=== PATIENT | male | born 1945 | race Two or more races ===

== ENCOUNTER 2018-08-22 17:31 | Inpatient (IN) | payer MEDICARE ==
[~2018-08-22] VITALS: Ht 182.9 cm; Wt 86.6 kg
--- NOTE | 2018-08-22 17:34 | NUR ---
PT BIB88 FROM SNF C/O SOB SINCE THIS AFTERNOON, FEBRILE 100.2, PT IS AAOX4, NOTED SOB, HOOKED TO MONITOR AND O2 VIA NC AT 2LP, KEPT RESTED AND COMFORTABLE, WILL CONTINUE TO MONITOR.
--- NOTE | 2018-08-22 17:35 | NUR ---
SEEN AND EXAMINED BY DR. ELMORE.
--- NOTE | 2018-08-22 17:40 | NUR ---
LABS DRAWNED AND SENT TO LAB.
[2018-08-22] MEDS ORDERED: ALBUTEROL FS 2.5 MG/3 ML VIAL.NEB ONE (17:43)
[2018-08-22] MEDS ORDERED: IPRATROPIUM NEB FS 0.5 MG/2.5 ML AMPUL.NEB ONE (17:44)
--- NOTE | 2018-08-22 17:45 | NUR ---
RT AT BEDSIDE FOR BREATHING TREATMENT.
--- NOTE | 2018-08-22 17:50 | NUR ---
PICC LINE NURSE AT BEDSIDE.
[2018-08-22 17:56] LABS: BASOPHILS # (AUTO) 0.1 /CMM (0.0-0.2); BASOPHILS % (AUTO) 0.5 % (0.0-2.0); EOSINOPHILS % (AUTO) 0.2 % (0.0-6.0); HEMATOCRIT 27 % (39-51); HEMOGLOBIN 8.3 g/dL (13.5-17.5); LYMPHOCYTES # (AUTO) 0.8 /CMM (0.8-4.8); LYMPHOCYTES % (AUTO) 7.7 % (20.0-44.0); MEAN CORPUSCULAR HGB CONC 31 g/dl (31.0-36.0); MEAN CORPUSCULAR VOLUME 75 fL (80-96); MONOCYTES # (AUTO) 0.8 /CMM (0.1-1.30); MONOCYTES % (AUTO) 7.8 % (2.0-12.0); NEUTROPHILS # (AUTO) 8.7 /CMM (1.8-8.9); NEUTROPHILS % (AUTO) 83.8 % (43.0-81.0); PLATELET COUNT (AUTO) 419 /CMM (150-450); RED BLOOD CELL COUNT(AUTO) 3.64 MIL/uL (4.5-6.0); WHITE BLOOD COUNT (AUTO) 10.3 K/uL (4.3-11.0)
[2018-08-22] MEDS ORDERED: ALBUTEROL FS 2.5 MG/3 ML VIAL.NEB NEB ONE (18:00)
[2018-08-22] MEDS ORDERED: IPRATROPIUM NEB FS 0.5 MG/2.5 ML AMPUL.NEB NEB ONE (18:00)
--- NOTE | 2018-08-22 18:00 | NUR ---
CIVIL CELEBRANT AT BEDSIDE FOR XRAY.
[2018-08-22 18:15] LABS: CALCIUM, SERUM 7.7 mg/dL (8.5-10.1); CARBON DIOXIDE 28 mmol/L (21-32); CHLORIDE 101 mmol/L (98-107); CREATININE 0.6 mg/dL (0.6-1.3); GLUCOSE 127 mg/dL (74-106); POTASSIUM 4.5 mmol/L (3.5-5.1); SODIUM SERUM 135 mmol/L (136-145); UREA NITROGEN, BLOOD 22 mg/dL (7-18)
[2018-08-22 18:20] LABS: ALANINE AMINOTRANSFERASE 61 U/L (12-78); ALKALINE PHOSPHATASE 153 U/L (46-116); ASPARTATE AMINOTRANSFERASE 40 U/L (15-37); BILIRUBIN,DIRECT 0.1 mg/dL (0.0-0.2); BILIRUBIN,TOTAL 0.2 mg/dL (0.2-1.0); TOTAL PROTEIN, SERUM 6.7 g/dL (6.4-8.2)
[2018-08-22] MEDS ORDERED: ACETAMINOPHEN 325 MG TABLET PO ONE (18:30)
[2018-08-22] MEDS ORDERED: ACETAMINOPHEN 325 MG TABLET ONE (18:37)
--- NOTE | 2018-08-22 18:44 | NUR ---
URINAL GIVEN BUT UNABLE TO GIVE URINE SPECIMEN. REFUSING RASMUSSEN CATH.
[2018-08-22] MEDS ORDERED: CEFEPIME 1 GM in IV D5W 50 ML IV ONE (19:00)
[2018-08-22] MEDS ORDERED: VANCOMYCIN 1 GM in IV D5W 250 ML IV ONE (19:00)
[2018-08-22] MEDS ORDERED: methylPREDNISolone SOD SUCC 125 MG/2ML VIAL IV ONE (19:00)
[2018-08-22 19:03] LABS: APPEARANCE,URINE Clear (CLEAR); BILIRUBIN,URINE Negative (NEGATIVE); BLOOD, URINE Negative Ery/uL (NEGATIVE); COLOR,URINE Yellow (YELLOW); KETONES,URINE Negative (NEGATIVE); LEUKOCYTE ESTERASE ,URINE Negative (NEGATIVE); NITRITE, URINE Negative (NEGATIVE); PROTEIN,URINE 30 mg/dl (NEGATIVE); UGLUCOSE Negative (NEGATIVE); UROBILINOGEN,URINE 0.2 EU/dL (0.2)
[2018-08-22 19:05] LABS: BACTERIA,URINE Few /HPF (None Seen); SQUAMOUS EPITHELIAL CELL,UR Few /HPF (None Seen)
[2018-08-22] MEDS ORDERED: methylPREDNISolone SOD SUCC 125 MG/2ML VIAL ONE (19:20)
--- NOTE | 2018-08-22 19:30 | NUR ---
REPORT GIVEN TO SACHIN FUNEZ FOR MICHELLE.
--- NOTE | 2018-08-22 19:40 | NUR ---
EPIC PAGED FOR POSSIBLE ADMISSIONS
[2018-08-22 19:47] LABS: ABG BASE EXCESS -3.7 mmol/L; ABG OXYGEN SATURATION 91.9 % (92.0-98.5); ABG PCO2 30.6 mmHg (35.0-45.0); ABG PH 7.431 (7.350-7.450); ABG PO2 68.2 mmHg (75.0-100.0); AaDO2 124.2 mmHg; COHb 0.5 % (0.5-1.5); MetHb 0.7 % (0.0-1.5); O2Hb 90.8 % (94.0-97.0); SITE, ABG Right Radial; VENT MODE, BG N/C
--- NOTE | 2018-08-22 20:08 | NUR ---
ADMIT TO ROOM 319 TELE DX [facility] ACCEPTING [facility]
--- NOTE | 2018-08-22 20:22 | NUR ---
REPORT GIVEN TO YAW MCGILL FOR MICHELLE.
[2018-08-22] MEDS ORDERED: IV NS 0.9% 250 ML IV ONE (20:29)
[2018-08-22] MEDS ORDERED: CT SWABBABLE VALVE TRANS SET 1 EA INFUS.SET MC ONE (20:29)
[2018-08-22] MEDS ORDERED: IOHEXOL-350 100 ML VIAL IV ONE (20:29)
--- NOTE | 2018-08-22 20:31 | NUR ---
PT TO CT, PER MD ZHOU, PT WILL BE GOING TO [facility]
--- NOTE | 2018-08-22 20:31 | NUR ---
PT TAKEN TO RADIOLOGY FOR CTA
--- NOTE | 2018-08-22 20:46 | NUR ---
report given to angélicaalejandra crooks for izzy.
[2018-08-22] MEDS ORDERED: IV NS 0.9% 1,000 ML IV PRN (21:00)
[2018-08-22] MEDS ORDERED: IV NS 0.9% 500 ML BAG IV ONE (21:00)
[2018-08-22] MEDS ORDERED: ONDANSETRON HCL/PF 4 MG/2 ML VIAL IVP PRN (21:00)
[2018-08-22] MEDS: MEROPENEM 1 G in IV NS 0.9% 100 ML IV SCH (21:00)
[2018-08-22 21:10] VITALS: BP 105/47
--- NOTE | 2018-08-22 21:30 | NUR ---
RN/ADMISSION [facility] NOTES: RECEIVED PT. VIA GURNEY FROM ER W/RN AND TECH AND . ALERT AND AWAKE. VERBALLY RESPONSIVE. ABLE TO MAKE NEEDS KNOWN. DENIES ANY C/O CHEST PAIN OR SOB AT PRESENT. ON TELE MONITOR W/ ST AT 118. BODY ASSESSMENT DONE W/ PICTURES IN CHART. PER PT. HE HAD # 3 HIATAL HERNIA 03/2018. FIRST HIATAL HERNIA SURGERY WAS IN 1998 AND SECOND ONE WAS IN 2008. CURRENTLY HE LOWER PART OF THE ABDOMEN W/ REDNESS AND OOZING W/ YELLOWISH COLOR DRAINAGE NOTED. HAS A PICC LINE TLC ON ERIC W/ DRESSING C/D/I W/ NO S/S OF INFECTION/INFILTRATION NOTED. PT. WEARS TOP DENTURES AND BOTTOM PARTIAL. INCONTINENT OF B/B. CALL LIGHT W/ REACH.
[2018-08-22] MEDS ORDERED: MEROPENEM 1 G VIAL IV ONE (22:38)
[2018-08-22] MEDS ORDERED: IV D5/ 0.9% NACL 1,000 ML IV PRN (23:30)
--- NOTE | 2018-08-22 23:30 | NUR ---
RN/[facility] NOTES: CALLED DR. YANG REGARDING PT. WAS ON D5 AND ON TPN PRIOR TO COMING TO ER. PER MD TO CHANGE FLUIDS TO D5NS AND START ON HHN TX. NOTED AND CARRIED OUT.
[2018-08-22] MEDS: ENOXAPARIN SODIUM 40 MG/0.4 ML DISP.SYRIN SQ SCH (23:56)
[2018-08-22] MEDS: PANTOPRAZOLE 40 MG VIAL IV SCH (23:56)
[2018-08-23] VITALS: BP 102/69
[2018-08-23] MEDS: ALBUTEROL FS 2.5 MG/3 ML VIAL.NEB NEB SCH ×7 (00:17→23:30)
[2018-08-23] MEDS: IPRATROPIUM NEB FS 0.5 MG/2.5 ML AMPUL.NEB NEB SCH ×7 (00:17→23:31)
[2018-08-23 04:00] VITALS: BP 104/52
[2018-08-23] MEDS ORDERED: MEROPENEM 1 G VIAL IV ONE (05:21)
[2018-08-23] MEDS: MEROPENEM 1 G in IV NS 0.9% 100 ML IV SCH ×3 (05:25→17:41)
[2018-08-23 06:34] LABS: BASOPHILS % (AUTO) 0.1 % (0.0-2.0); HEMATOCRIT 26 % (39-51); LYMPHOCYTES # (AUTO) 0.8 /CMM (0.8-4.8); MEAN CORPUSCULAR HGB CONC 31 g/dl (31.0-36.0); MEAN CORPUSCULAR VOLUME 75 fL (80-96); MONOCYTES # (AUTO) 0.2 /CMM (0.1-1.30); MONOCYTES % (AUTO) 1.7 % (2.0-12.0); NEUTROPHILS # (AUTO) 7.8 /CMM (1.8-8.9); NEUTROPHILS % (AUTO) 89.2 % (43.0-81.0); PLATELET COUNT (AUTO) 401 /CMM (150-450); RED BLOOD CELL COUNT(AUTO) 3.46 MIL/uL (4.5-6.0); WHITE BLOOD COUNT (AUTO) 8.8 K/uL (4.3-11.0)
[2018-08-23 06:49] LABS: ALANINE AMINOTRANSFERASE 53 U/L (12-78); ALBUMIN 1.8 g/dL (3.4-5.0); ALKALINE PHOSPHATASE 138 U/L (46-116); ASPARTATE AMINOTRANSFERASE 29 U/L (15-37); BILIRUBIN,TOTAL 0.2 mg/dL (0.2-1.0); CALCIUM, SERUM 8.3 mg/dL (8.5-10.1); CARBON DIOXIDE 27 mmol/L (21-32); CHLORIDE 105 mmol/L (98-107); CREATININE 0.7 mg/dL (0.6-1.3); GLUCOSE 179 mg/dL (74-106); POTASSIUM 4.3 mmol/L (3.5-5.1); SODIUM SERUM 141 mmol/L (136-145); TOTAL PROTEIN, SERUM 6.4 g/dL (6.4-8.2); UREA NITROGEN, BLOOD 20 mg/dL (7-18)
--- NOTE | 2018-08-23 07:32 | NUR ---
RN/[facility] NOTES: REPORT GIVEN TO NEXT SHIFT NURSE FOR MICHELLE.
--- NOTE | 2018-08-23 07:45 | NUR ---
RN NOTE: RECEIVED PATIENT IN BED, AWAKE, ALERT AND VERBALLY RESPONSIVE. RESPIRATION EVEN AND UNLABORED SATURATING 95%. DENIED ANY PAIN. (R) UA PICC LINE WITH 3 LUMENS NOTED IN PLACED WITH D5NS @80ML/HR. ON KEYSEATER OPERATOR ST= 118. BED ON LOWEST POSITION AND LOCKED AT ALL TIMES. HOB ELEVATED. CALL LIGHT WITHIN REACH. NEEDS ANTICIPATED.
[2018-08-23 08:00] VITALS: BP 126/65
[2018-08-23] MEDS ORDERED: VANCOMYCIN 1.25 GM in IV D5W 500 ML IV SCH (09:00)
[2018-08-23] MEDS: PANTOPRAZOLE 40 MG VIAL IV SCH (09:18)
[2018-08-23] MEDS ORDERED: Z GUARD REMEDY 4 OZ OINT TP PRN (11:00)
[2018-08-23] MEDS ORDERED: TPN/PPN PER PHARMACY XX PRN (11:30)
[2018-08-23 12:00] VITALS: BP 116/65
[2018-08-23] MEDS ORDERED: BLOO-668 IN (12:15)
[2018-08-23] MEDS ORDERED: ENOX40DI SUBCUT (12:15)
[2018-08-23] MEDS ORDERED: DEXT50DI5 IV (12:15)
[2018-08-23] MEDS ORDERED: BUDE10.2 IH (12:15)
[2018-08-23] MEDS ORDERED: PANT40VI IV (12:15)
[2018-08-23] MEDS ORDERED: INSU100V28 SQ (12:15)
[2018-08-23] MEDS ORDERED: ACET650S26 PO (12:15)
[2018-08-23] MEDS ORDERED: IPRA0.2S9 IH (12:15)
[2018-08-23] MEDS ORDERED: IBUP-1953 PO (12:15)
[2018-08-23] MEDS ORDERED: LEVA1.257 IH (12:15)
[2018-08-23] MEDS ORDERED: ESCI20TA PO (12:15)
[2018-08-23] MEDS ORDERED: ONDA4TAB11 PO (12:15)
[2018-08-23] MEDS ORDERED: ONDA4VIA52 IV (12:15)
[2018-08-23] MEDS ORDERED: LACT1CAP40 PO (12:15)
[2018-08-23] MEDS ORDERED: PROCHLORPERAZINE 10 MG IV (12:15)
[2018-08-23] MEDS ORDERED: DOCU-141 PO (12:15)
[2018-08-23] MEDS ORDERED: DILT30TA2 PO (12:15)
--- NOTE | 2018-08-23 13:06 | NUR ---
RN NOTE: RECEIVED A CRITICAL LAB RESULT FOR LACTIC ACID REFLEX 2.8 FROM LAB. CALLED AND PAGED DR ARIANNA BURTON FOR THE CRITICAL LAB RESULT. AWAITING FOR RESPONSE.
--- NOTE | 2018-08-23 13:09 | NUR ---
RN NOTE: RECEIVED AN ORDER FROM DR. ARIANNA BURTON TO GIVE A NS 500 ML BOLUS X 1 FOR THE LACTIC ACID REFLEX 2.8 ORDER, NOTED AND CARRIED OUT. PATIENT MADE AWARE.
[2018-08-23] MEDS: methylPREDNISolone SOD SUCC 40 MG/ML VIAL IV SCH ×2 (13:14→16:26)
[2018-08-23] MEDS: METRONIDAZOLE 500MG/ NS 100ML 500 MG in PREMIX 1 EA IV SCH ×2 (13:15→21:17)
[2018-08-23] MEDS ORDERED: IV NS 0.9% 500 ML IV ONE (13:30)
[2018-08-23 13:53] LABS: MAGNESIUM 1.9 mg/dL (1.8-2.4); PHOSPHORUS 2.9 mg/dL (2.5-4.9)
[2018-08-23] MEDS ORDERED: FEE PK DOSING 1 MIN EA MC ONE (13:56)
[2018-08-23] MEDS ORDERED: FEE TPN 1 MIN EA MC ONE (13:56)
[2018-08-23] MEDS ORDERED: DEXTROSE 50%-WATER 50 ML DISP.SYRIN IV PRN (14:30)
[2018-08-23] MEDS: FAT EMULSION 20% 500 ML in PREMIX 1 EA IV SCH (15:53)
[2018-08-23 16:00] VITALS: BP 111/53
[2018-08-23] MEDS ORDERED: TPN BAG #1 IV SCH ×9 (16:00)
[2018-08-23] MEDS ORDERED: TPN BAG #2 IV PRN ×7 (16:00)
[2018-08-23] MEDS: BLOOD SUGAR DIAGNOSTIC 1 EACH STRIP IN SCH (17:53)
[2018-08-23] MEDS: INSULIN REGULAR, HUMAN 100 UNIT/ML 3 ML VIAL SQ PRN (17:54)
--- NOTE | 2018-08-23 18:51 | NUR ---
RN NOTE: INFORMED DR. BURTON REGARDING THE PATIENT'S REQUEST TO HAVE LIQUID DIET, BUT PER DR. BURTON OK WITH LITTLE SIPS OF WATER OR ICE CHIPS. PATIENT AND , DANIELE WERE INFORMED. ORDER, NOTED AND CARRIED OUT.
--- NOTE | 2018-08-23 19:02 | NUR ---
RN NOTE: PATIENT ON STABLE CONDITION. CURRENTLY RECEIVING THE TPN AND LIPIDS PER MD ORDER. TOLERATING IT WELL. DANIELE, PRESENT AT THE BEDSIDE. BEDSIDE REPORT GIVEN TO PM SHIFT NURSE FOR CONTINUITY OF CARE.
[2018-08-23 20:00] VITALS: BP 115/70
--- NOTE | 2018-08-23 20:00 | NUR ---
[facility] RN NOTE: RECEIVED BEDSIDE REPORT FROM AM RN. PATIENT ON BED WITH FAMILY MEMBER AT THE BEDSIDE, ON STABLE CONDITION. CURRENTLY RECEIVING THE TPN AND LIPIDS PER MD ORDER. TOLERATING IT WELL. PATIENT DENIES OF SOB, ANY PAIN AND DISCOMFORT AT THIS TIME. PICC LINE AT RIGHT UPPER ARM IS PATIENT AND INTACT. ALL SAFETY MEASURES ARE IMPLEMENTED, BED IN LOW, LOCKED POSITION, CALL LIGHT IN REACH. WILL CONTINUE TO MONITOR PATIENT CLOSELY.
[2018-08-23] MEDS: ENOXAPARIN SODIUM 40 MG/0.4 ML DISP.SYRIN SQ SCH (21:28)
[2018-08-23] MEDS: VANCOMYCIN 1.5 GM in IV D5W 500 ML IV SCH (22:17)
[2018-08-24] VITALS: BP 107/98
[2018-08-24] MEDS: BLOOD SUGAR DIAGNOSTIC 1 EACH STRIP IN SCH ×4 (00:43→18:11)
[2018-08-24] MEDS: INSULIN REGULAR, HUMAN 100 UNIT/ML 3 ML VIAL SQ PRN ×4 (00:48→18:11)
[2018-08-24] MEDS: MEROPENEM 1 G in IV NS 0.9% 100 ML IV SCH ×3 (02:18→18:11)
[2018-08-24] MEDS: IPRATROPIUM NEB FS 0.5 MG/2.5 ML AMPUL.NEB NEB SCH ×6 (03:46→23:02)
[2018-08-24] MEDS: ALBUTEROL FS 2.5 MG/3 ML VIAL.NEB NEB SCH ×6 (03:46→23:02)
[2018-08-24 04:00] VITALS: BP 118/81
[2018-08-24] MEDS: METRONIDAZOLE 500MG/ NS 100ML 500 MG in PREMIX 1 EA IV SCH ×3 (05:51→21:56)
--- NOTE | 2018-08-24 07:30 | NUR ---
MASCARA MOLDER OPENING NOTE: RECEIVED BEDSIDE REPORT FROM NOC RN . PATIENT IN BED ASLEEP ABLE TO AROUSE WITH TOUCH AND VOICE A/O X4 PLEASANT. CURRENTLY RECEIVING THE TPN AND LIPIDS PER MD ORDER VIA [facility] PICC. TOLERATING IT WELL. PATIENT DENIES OF SOB, ANY PAIN AND DISCOMFORT AT THIS TIME ALL SAFETY MEASURES ARE IMPLEMENTED, BED IN LOW, LOCKED POSITION, CALL LIGHT IN REACH. WILL CONTINUE TO MONITOR PATIENT CLOSELY.
[2018-08-24 08:00] VITALS: BP 112/70
[2018-08-24 08:48] LABS: CARBON DIOXIDE 27 mmol/L (21-32); CHLORIDE 105 mmol/L (98-107); CREATININE 0.6 mg/dL (0.6-1.3); GLUCOSE 165 mg/dL (74-106); MAGNESIUM 1.8 mg/dL (1.8-2.4); PHOSPHORUS 2.2 mg/dL (2.5-4.9); POTASSIUM 3.9 mmol/L (3.5-5.1); SODIUM SERUM 138 mmol/L (136-145); UREA NITROGEN, BLOOD 22 mg/dL (7-18)
[2018-08-24] MEDS: PANTOPRAZOLE 40 MG VIAL IV SCH (09:14)
[2018-08-24] MEDS: methylPREDNISolone SOD SUCC 40 MG/ML VIAL IV SCH ×3 (09:14→18:14)
--- NOTE | 2018-08-24 09:32 | NUR ---
GEOLOGICAL SPECIALIST NOTES CHANGED ABDOMINAL DRESSING LARGE AMOUNTS OF GREEN YELLOW COLORED DRAINAGE WILL F/U WITH WOUND AND MD
[2018-08-24] MEDS: VANCOMYCIN 1.5 GM in IV D5W 500 ML IV SCH ×2 (10:03→22:33)
[2018-08-24 12:00] VITALS: BP 132/71
[2018-08-24] MEDS ORDERED: TPN BAG #3 IV SCH ×9 (13:00)
[2018-08-24] MEDS ORDERED: TPN BAG #4 IV SCH ×7 (13:00)
[2018-08-24 16:00] VITALS: BP 135/78
[2018-08-24] MEDS: FAT EMULSION 20% 500 ML in PREMIX 1 EA IV SCH (16:15)
--- NOTE | 2018-08-24 19:56 | NUR ---
GLOBAL SUPPLY CHAIN DIRECTOR CLOSING NOTE: REPORT GIVEN TO NOC RN PATIENT AWAKE IN BED AT BEDSIDE A/O X4 PLEASANT NO SIGNS OR SYMPTOMS OF RESPIRATORY DISTRESS OR ACUTE PAIN NOTED CURRENTLY RECEIVING THE TPN @ 75ML/HR AND LIPIDS @20ML/HR PER MD ORDER VIA EMMANUEL PICC. TOLERATING IT WELL. FULL LIQUID DIET FOR DINNER NO NAUSEA OR VOMITING DIARRHEA PATIENT DENIES OF SOB, ANY PAIN AND DISCOMFORT AT THIS TIME ALL SAFETY MEASURES ARE IMPLEMENTED, BED IN LOW, LOCKED POSITION, CALL LIGHT IN REACH. WILL ENDORSE TO NOC.
[2018-08-24 20:00] VITALS: BP 114/65
[2018-08-24] MEDS: ENOXAPARIN SODIUM 40 MG/0.4 ML DISP.SYRIN SQ SCH (21:57)
[2018-08-25] VITALS: BP 131/76
[2018-08-25] MEDS: BLOOD SUGAR DIAGNOSTIC 1 EACH STRIP IN SCH ×4 (00:18→18:09)
[2018-08-25] MEDS: INSULIN REGULAR, HUMAN 100 UNIT/ML 3 ML VIAL SQ PRN ×4 (00:20→18:12)
[2018-08-25] MEDS: MEROPENEM 1 G in IV NS 0.9% 100 ML IV SCH ×3 (02:21→18:08)
[2018-08-25] MEDS: ALBUTEROL FS 2.5 MG/3 ML VIAL.NEB NEB SCH ×6 (03:59→23:19)
[2018-08-25 04:00] VITALS: BP 138/85
[2018-08-25] MEDS: IPRATROPIUM NEB FS 0.5 MG/2.5 ML AMPUL.NEB NEB SCH ×6 (04:00→23:19)
[2018-08-25] MEDS: METRONIDAZOLE 500MG/ NS 100ML 500 MG in PREMIX 1 EA IV SCH ×2 (05:16→13:52)
[2018-08-25 08:00] VITALS: BP 132/73
--- NOTE | 2018-08-25 08:14 | NUR ---
RN NOTE: PATIENT REMAINS ALERT AWAKE ORIENTED X 3. ON 2LPM O2 VIA NC, NO BREATHING DISTRESS NOTED. DENIES PAIN & DISCOMFORT. PICC LINE INTACT, RUNNING TPN, LIPIDS IV ORDERED. ABLE TO FLUSH WITHOUT DIFFICULTY. SAFETY MEASURES OBSERVED. ENCOURAGE TO USE CALL LIGHT FOR ASSISTANCE. CONTINUE WITH PLAN OF CARE.
[2018-08-25 08:35] LABS: CARBON DIOXIDE 28 mmol/L (21-32); CHLORIDE 104 mmol/L (98-107); CREATININE 0.6 mg/dL (0.6-1.3); GLUCOSE 135 mg/dL (74-106); MAGNESIUM 1.8 mg/dL (1.8-2.4); PHOSPHORUS 2.4 mg/dL (2.5-4.9); POTASSIUM 4.2 mmol/L (3.5-5.1); SODIUM SERUM 138 mmol/L (136-145); UREA NITROGEN, BLOOD 21 mg/dL (7-18)
[2018-08-25] MEDS: PANTOPRAZOLE 40 MG VIAL IV SCH (09:01)
[2018-08-25] MEDS: methylPREDNISolone SOD SUCC 40 MG/ML VIAL IV SCH ×3 (09:01→18:08)
[2018-08-25] MEDS: VANCOMYCIN 1.5 GM in IV D5W 500 ML IV SCH (09:07)
[2018-08-25 12:00] VITALS: BP 141/86
[2018-08-25] MEDS ORDERED: IV NS 0.9% 500 ML IV ONE (12:00)
[2018-08-25] MEDS ORDERED: TPN BAG #5 IV PRN ×9 (14:00)
[2018-08-25 16:00] VITALS: BP 146/71
[2018-08-25] MEDS: LINEZOLID RTU BAG 600 MG in PREMIX 1 EA IV SCH (16:14)
[2018-08-25] MEDS: FAT EMULSION 20% 500 ML in PREMIX 1 EA IV SCH (16:14)
[2018-08-25] MEDS ORDERED: LIDOCAINE 1%-EPI 1:100,000 20 ML VIAL ONE (18:55)
[2018-08-25] MEDS ORDERED: TDAP [DIPH/PERTUSSIS/TET] 0.5 ML VIAL IM ONE (18:55)
[2018-08-25] MEDS ORDERED: CEPHALEXIN MONOHYDRATE 500 MG CAPSULE PO ONE (18:55)
[2018-08-25] MEDS ORDERED: ACETAMINOPHEN ES 500 MG TABLET ONE (18:55)
[2018-08-25 20:00] VITALS: BP 127/72
[2018-08-25] MEDS: ENOXAPARIN SODIUM 40 MG/0.4 ML DISP.SYRIN SQ SCH (21:13)
[2018-08-26] MEDS: BLOOD SUGAR DIAGNOSTIC 1 EACH STRIP IN SCH ×4 (00:22→17:37)
[2018-08-26] MEDS: LINEZOLID RTU BAG 600 MG in PREMIX 1 EA IV SCH ×2 (00:22→12:28)
[2018-08-26] MEDS: VANCOMYCIN HCL 125 MG/2.5 ML ORAL.SUSP PO SCH ×4 (00:22→17:29)
[2018-08-26] MEDS: INSULIN REGULAR, HUMAN 100 UNIT/ML 3 ML VIAL SQ PRN ×4 (00:25→17:36)
[2018-08-26] MEDS: MEROPENEM 1 G in IV NS 0.9% 100 ML IV SCH ×3 (02:07→17:29)
[2018-08-26] MEDS: ALBUTEROL FS 2.5 MG/3 ML VIAL.NEB NEB SCH ×6 (03:31→22:49)
[2018-08-26] MEDS: IPRATROPIUM NEB FS 0.5 MG/2.5 ML AMPUL.NEB NEB SCH ×6 (03:31→22:49)
--- NOTE | 2018-08-26 06:26 | NUR ---
MS RN CLOSING NOTES Patient asleep at this time, on NC @ 2LPM, saturating well, no SOB/respiratory distress noted. Able to ambulate with walker to bathroom, steady gait. BM x2, moderate, regular, formed. All due meds given as ordered, no ASE noted. Still on TPN, #6 as same rate as ordered, infusing well. No new complaints made. All needs attended. Kept clean, dry and comfortable. Call light within easy reach. Endorsed to the next shift.
--- NOTE | 2018-08-26 07:30 | NUR ---
MS RN OPENING NOTE RECEIVED PATIENT IN BED. SLEEPING, EASILY AROUSED WITH VERBAL STIMULI, ORIENTED X3. ON 2L O2 VIA NC, TOLERATING WELL. IN NO APPARENT DISTRESS OR DISCOMFORT AT THIS TIME/ RESPIRATION EVEN AND UNLABORED DENIES PAIN AND SOB AT THIS TIME. PATIENT IS ABLE TO COMMUNICATE NEEDS. RIGHT UPPER ARM PICC LINE WITH TPN AND LIPIDS RUNNING ORDERED. PATENT AND INTACT. PATIENT KEPT CLEAN AND COMFORTABLE. ALL NEEDS ATTENDED, SAFETY MEASURES IN PLACE, BED IN LOW LOCKED POSITION, SIDE RAILS UP X2, CALL LIGHT WITHIN EASY REACH. WILL CONTINUE TO MONITOR.
[2018-08-26 07:58] LABS: CALCIUM, SERUM 7.8 mg/dL (8.5-10.1); CARBON DIOXIDE 27 mmol/L (21-32); CHLORIDE 104 mmol/L (98-107); CREATININE 0.6 mg/dL (0.6-1.3); GLUCOSE 162 mg/dL (74-106); MAGNESIUM 1.7 mg/dL (1.8-2.4); PHOSPHORUS 2.9 mg/dL (2.5-4.9); POTASSIUM 4.1 mmol/L (3.5-5.1); SODIUM SERUM 139 mmol/L (136-145); UREA NITROGEN, BLOOD 18 mg/dL (7-18)
[2018-08-26 08:00] VITALS: BP 130/75
[2018-08-26] MEDS: methylPREDNISolone SOD SUCC 40 MG/ML VIAL IV SCH ×3 (08:23→17:29)
[2018-08-26] MEDS: PANTOPRAZOLE 40 MG VIAL IV SCH (08:23)
[2018-08-26 09:00] VITALS: BP 130/75
[2018-08-26 10:00] VITALS: BP 130/75
[2018-08-26] MEDS ORDERED: ESCITALOPRAM OXALATE (10 MG) 10 MG TABLET PO SCH (14:00)
[2018-08-26] MEDS: DILTIAZEM HCL 30 MG TABLET PO SCH ×2 (15:50→17:29)
[2018-08-26] MEDS: FAT EMULSION 20% 500 ML in PREMIX 1 EA IV SCH (15:51)
[2018-08-26 16:00] VITALS: BP 140/72
[2018-08-26] MEDS ORDERED: TPN BAG #6 IV PRN ×7 (16:00)
[2018-08-26] MEDS ORDERED: TPN BAG #7 IV SCH ×9 (16:00)
--- NOTE | 2018-08-26 18:14 | NUR ---
MS RN CLOSING NOTE PATIENT IN BED. ALERT ORIENTED X3. ON 2L O2 VIA NC, TOLERATING WELL. IN NO APPARENT DISTRESS OR DISCOMFORT AT THIS TIME. RESPIRATION EVEN AND UNLABORED. DENIES PAIN AND SOB AT THIS TIME. PATIENT IS ABLE TO COMMUNICATE NEEDS. RIGHT UPPER ARM PICC LINE WITH TPN AND LIPIDS RUNNING WITH ORDERED SETTINGS. PATENT AND INTACT. PATIENT KEPT CLEAN AND COMFORTABLE. ALL NEEDS ATTENDED, ORDERS RENDERED. SAFETY MEASURES IN PLACE, BED IN LOW LOCKED POSITION, SIDE RAILS UP X2, CALL LIGHT WITHIN EASY REACH. WILL ENDORSE TO PM NURSE FOR MICHELLE.
[2018-08-26 20:00] VITALS: BP 104/57
--- NOTE | 2018-08-26 20:00 | NUR ---
MS/RN OPENING NOTES RECEIVED PATIENT IN BED, AWAKE, ALERT X3, ABLE TO VERBALIZE NEEDS, DENIES PAIN, RESPIRATIONS EVEN AND UNLABORED. REQUIRE DRESSING AND MONITORING OF ABDOMINAL WOUND. PICC LINE CHECK FOR PATENCY, INSTRUCT TO HAVE ARM ELEVATED FOR PROPER CIRCULATION. RECEIVED ENDORSEMENT FROM AM RN FOR MICHELLE. WILL MONITOR.
[2018-08-26] MEDS: ENOXAPARIN SODIUM 40 MG/0.4 ML DISP.SYRIN SQ SCH (21:01)
[2018-08-27] MEDS: LINEZOLID RTU BAG 600 MG in PREMIX 1 EA IV SCH ×3 (00:20→23:09)
[2018-08-27] MEDS: BLOOD SUGAR DIAGNOSTIC 1 EACH STRIP IN SCH ×4 (00:21→17:47)
[2018-08-27] MEDS: VANCOMYCIN HCL 125 MG/2.5 ML ORAL.SUSP PO SCH ×5 (00:21→23:09)
[2018-08-27] MEDS: INSULIN REGULAR, HUMAN 100 UNIT/ML 3 ML VIAL SQ PRN ×4 (00:39→18:06)
[2018-08-27] MEDS: IPRATROPIUM NEB FS 0.5 MG/2.5 ML AMPUL.NEB NEB SCH ×6 (02:51→23:05)
[2018-08-27] MEDS: ALBUTEROL FS 2.5 MG/3 ML VIAL.NEB NEB SCH ×6 (02:51→23:05)
[2018-08-27] MEDS: MEROPENEM 1 G in IV NS 0.9% 100 ML IV SCH ×3 (03:14→17:31)
[2018-08-27 04:00] VITALS: BP 119/66
[2018-08-27 06:30] LABS: CALCIUM, SERUM 7.9 mg/dL (8.5-10.1); CARBON DIOXIDE 30 mmol/L (21-32); CHLORIDE 103 mmol/L (98-107); CREATININE 0.6 mg/dL (0.6-1.3); GLUCOSE 152 mg/dL (74-106); PHOSPHORUS 3.4 mg/dL (2.5-4.9); POTASSIUM 4.1 mmol/L (3.5-5.1); SODIUM SERUM 137 mmol/L (136-145); UREA NITROGEN, BLOOD 17 mg/dL (7-18)
--- NOTE | 2018-08-27 06:50 | NUR ---
110-1MS/RN NOTES PATIENT ABLE TO SLEEP DURING THE NIGHT, REPISRATIONS EVEN AND UNLABORED. PARTICIPATIVE TO CARE. KEPT SKIN INTATC AND DRY, CALL LIGHTS WITHIN REACH, IV ANTIBIOTIC ADMINIDTERED. WILL MONITOR.ABD ENDORSE TO AM RN FOR MICHELLE.
--- NOTE | 2018-08-27 07:53 | NUR ---
RN MS OPENING NOTE: RECEIVED BEDSIDE REPORT FROM NOC RN . PATIENT IN BED ASLEEP ABLE TO AROUSE WITH TOUCH AND VOICE A/O X4 PLEASANT. CURRENTLY RECEIVING THE TPN AND LIPIDS PER MD ORDER VIA [facility] PICC. TOLERATING IT WELL. PATIENT DENIES OF SOB, ANY PAIN AND DISCOMFORT AT THIS TIME ALL SAFETY MEASURES ARE IMPLEMENTED, BED IN LOW, LOCKED POSITION, CALL LIGHT IN REACH. WILL CONTINUE TO MONITOR PATIENT CLOSELY.
[2018-08-27 08:00] VITALS: BP 132/73
[2018-08-27 08:14] VITALS: BP 132/73
[2018-08-27] MEDS: PANTOPRAZOLE 40 MG VIAL IV SCH (08:36)
[2018-08-27] MEDS: DILTIAZEM HCL 30 MG TABLET PO SCH ×3 (08:36→17:31)
[2018-08-27] MEDS: methylPREDNISolone SOD SUCC 40 MG/ML VIAL IV SCH ×3 (08:36→17:31)
[2018-08-27 10:00] VITALS: BP 132/73
[2018-08-27] MEDS ORDERED: LINEZOLID 600 MG TABLET PO SCH (11:00)
[2018-08-27] MEDS ORDERED: TPN BAG #8 IV PRN ×7 (12:30)
[2018-08-27] MEDS: FAT EMULSION 20% 500 ML in PREMIX 1 EA IV SCH (15:01)
[2018-08-27 16:00] VITALS: BP 114/72
--- NOTE | 2018-08-27 19:33 | NUR ---
PLUSH FINISHER CLOSING NOTE: REPORT GIVEN TO RUBENS RN A/O X4 PLEASANT NO SIGNS OR SYMPTOMS OF RESPIRATORY DISTRESS OR ACUTE PAIN NOTED CURRENTLY RECEIVING THE TPN @ 75ML/HR AND LIPIDS @20ML/HR PER MD ORDER VIA EMMANUEL PICC. TOLERATING IT WELL. FULL LIQUID DIET FOR DINNER NO NAUSEA OR VOMITING DIARRHEA PATIENT DENIES OF SOB, ANY PAIN AND DISCOMFORT AT THIS TIME ALL SAFETY MEASURES ARE IMPLEMENTED, BED IN LOW, LOCKED POSITION, CALL LIGHT IN REACH. WILL ENDORSE TO RUBENS.
[2018-08-27 20:00] VITALS: BP_SYST 107; BP_SYST 117; BP_DIAS 53; BP_DIAS 67
[2018-08-27] MEDS: ENOXAPARIN SODIUM 40 MG/0.4 ML DISP.SYRIN SQ SCH (21:26)
[2018-08-28 00:07] VITALS: BP 113/69
[2018-08-28] MEDS: BLOOD SUGAR DIAGNOSTIC 1 EACH STRIP IN SCH ×4 (00:32→17:26)
[2018-08-28] MEDS: INSULIN REGULAR, HUMAN 100 UNIT/ML 3 ML VIAL SQ PRN ×4 (00:34→17:27)
[2018-08-28] MEDS: MEROPENEM 1 G in IV NS 0.9% 100 ML IV SCH ×3 (02:30→17:10)
[2018-08-28] MEDS: ALBUTEROL FS 2.5 MG/3 ML VIAL.NEB NEB SCH ×5 (02:57→19:55)
[2018-08-28] MEDS: IPRATROPIUM NEB FS 0.5 MG/2.5 ML AMPUL.NEB NEB SCH ×5 (02:57→19:55)
[2018-08-28 04:00] VITALS: BP 124/69
[2018-08-28 05:00] VITALS: BP 124/69
--- NOTE | 2018-08-28 06:00 | NUR ---
pt no significant changes overnight, continue with tpn, lipids and antibiotics, voiding ,ambulates to bathroom. vss,afebrile, lab drawn thru picc , will continue to momitor. vss,afebrile
[2018-08-28] MEDS: VANCOMYCIN HCL 125 MG/2.5 ML ORAL.SUSP PO SCH ×3 (06:23→17:10)
[2018-08-28 07:05] LABS: CALCIUM, SERUM 7.8 mg/dL (8.5-10.1); CARBON DIOXIDE 29 mmol/L (21-32); CHLORIDE 102 mmol/L (98-107); CREATININE 0.6 mg/dL (0.6-1.3); GLUCOSE 155 mg/dL (74-106); MAGNESIUM 2.1 mg/dL (1.8-2.4); PHOSPHORUS 3.4 mg/dL (2.5-4.9); POTASSIUM 4.2 mmol/L (3.5-5.1); SODIUM SERUM 138 mmol/L (136-145); UREA NITROGEN, BLOOD 20 mg/dL (7-18)
--- NOTE | 2018-08-28 07:10 | NUR ---
MS RN OPENING NOTES RECEIVED PT LYING ON BED.ALERT/ORIENTED X4.ON 2 L O2 VIA NC CONTINUOUSLY,NO SOB AND ACUTE DISTRESS NOTED.3 LUMEN PICC LINE ON EMMANUEL,SITE IS CLEAN,DRY AND INTACT.TPN IS RUNNING.EDEMA ON RIGHT ARM NOTED.SAFETY IS MAINTAINED AT ALL TIMES.CALL LIGHT IS WITHIN REACH,BED IS IN LOW POSITION AND LOCKED.WILL CONTINUE TO MONITOR THE PT CLOSELY.
[2018-08-28 08:00] VITALS: BP 128/76
[2018-08-28] MEDS: PANTOPRAZOLE 40 MG VIAL IV SCH (08:23)
[2018-08-28] MEDS: methylPREDNISolone SOD SUCC 40 MG/ML VIAL IV SCH ×3 (08:23→16:05)
[2018-08-28] MEDS: DILTIAZEM HCL 30 MG TABLET PO SCH ×3 (08:23→16:06)
[2018-08-28] MEDS: LINEZOLID RTU BAG 600 MG in PREMIX 1 EA IV SCH (12:47)
[2018-08-28] MEDS: PROSOURCE / PROSTAT (PYXIS) 30 ML UDC PO SCH ×2 (13:35→16:05)
[2018-08-28] MEDS ORDERED: TPN BAG #9 IV PRN ×9 (14:30)
[2018-08-28] MEDS ORDERED: TPN BAG #10 IV PRN ×7 (15:30)
[2018-08-28 16:00] VITALS: BP 121/71
--- NOTE | 2018-08-28 18:00 | NUR ---
MS RN NOTES DATA COMPILER ARIANNA BURTON ORDERED TO CONTINUE PO VANCO AND IV ZYVOX AND IV MERREM X7 DAYS AFTER DISCHARGE TO SNF.
--- NOTE | 2018-08-28 18:15 | NUR ---
MS RN NOTES PT REPORT GIVEN TO SACHIN TREVINO IN [facility].
--- NOTE | 2018-08-28 18:30 | NUR ---
MS RN NOTES ALL THE DISCHARGE MEDICATIONS AND PROCEDURES HAS EXPLAINED TO THE PT AND BELONGING LIST HAS SIGNED BY THE PT.
--- NOTE | 2018-08-28 18:54 | NUR ---
MS RN CLOSING NOTES PT IS LYING ON BED.IV TPN AND IV ATB IS RUNNING.ON 2 L O2 VIA NC CONTINUOUSLY.NO SOB AND ACUTE DISTRESS NOTED.ALL THE SKIN PICTURES HAS TAKEN BEFORE DISCHARGE. IS AT BEDSIDE.NO SIGNIFICANT CHANGES NOTED IN THE SHIFT.ENDORSED TO EXTENSION WORKER RN FOR MICHELLE. Addendum: 08/28/18 at 1858 by MONICO HENDERSON RN ENDORSED TO EXTENSION WORKER RN TO FOLLOW UP THE DISCHARGE PROCESS.
--- NOTE | 2018-08-28 19:30 | NUR ---
MS RN INITIAL NOTES Patient in bed, awake, A/O x 4. On Oxygen at 2L NC denies SOB. EMMANUEL PICC line intact with TPN infusing. Abdomen wound dressing C/D/I denies pain. Patient to be discharge today, awaiting transport. at the bedside.
--- NOTE | 2018-08-28 19:59 | NUR ---
MS RN NOTES EMPLOYEE WELFARE MANAGER ARIANNA BURTON ORDERED TO HOLD TPN [facility].CHARGE NURSE KATHRINE AND CHAIN BUILDER LOOM CONTROL JEROME MADE AWARE.
[2018-08-28 21:00] VITALS: BP 114/61
[2018-08-28] MEDS: ENOXAPARIN SODIUM 40 MG/0.4 ML DISP.SYRIN SQ SCH (21:52)
--- NOTE | 2018-08-28 22:51 | NUR ---
DISCHARGED Transport arrived. Patient remains stable for discharge. Discharge instruction was given to patient by previous shift RN and reviewed by me with , verbalized understanding. EMMANUEL PICC patent and intact, remain in place. VSS, on low flow oxygen at 2L NC tolerating well. Patient left hosp in stable condition via ambulance accompanied by . Belongings send with the patient upon DC.
[2018-08-29] MEDS ORDERED: FAT EMULSION 20% 500 ML in PREMIX 1 EA IV SCH (16:00)
[2018-09-07] MEDS ORDERED: LEVA1.2524 NEB (16:54)
[2018-09-07] MEDS ORDERED: FLUT1BLS IH (16:54)
[2018-09-07] MEDS ORDERED: MICA100V IV (16:54)
[2018-09-07] MEDS ORDERED: IPRA0.2S9 NEB (16:54)
== END 2018-08-28 23:00 | DRG 871 ==
LOC: ER 17:33 → TELE 20:15 → TELE-TD 21:13 → TELE1 08-23 08:38 → MEDSG1 08-25 12:58
PROVIDERS: ADMIT Internal Medicine; ATTEND Nurse Practitioner Acute Care
PROC: 02HV33Z Insertion of Infusion Device into Superior Vena Cava, Percutaneous Approach (ICD-10-PCS; principal; 2018-08-22)
PROC: B548ZZA Ultrasonography of Superior Vena Cava, Guidance (ICD-10-PCS; 2018-08-22)
DX: A41.9 Sepsis, unspecified organism (principal); J96.01 Acute respiratory failure with hypoxia; I50.33 Acute on chronic diastolic (congestive) heart failure; L02.211 Cutaneous abscess of abdominal wall; J44.1 Chronic obstructive pulmonary disease with (acute) exacerbation; K63.2 Fistula of intestine; I11.0 Hypertensive heart disease with heart failure; F41.9 Anxiety disorder, unspecified; D63.8 Anemia in other chronic diseases classified elsewhere; Z87.891 Personal history of nicotine dependence; Z79.4 Long term (current) use of insulin; B96.89 Other specified bacterial agents as the cause of diseases classified elsewhere; Z16.21 Resistance to vancomycin
CPT/HCPCS: 36415; 36569; 36600; 71045-TC; 80048-TC; 80053-TC; 80076-TC; 80202-TC; 81000-TC; 82803-TC; 82962-TC; 83605-TC; 83735-TC; 84100-TC; 84478-TC; 84484-TC; 85025-TC; 85730-TC; 87040-TC; 87070-TC; 87081-TC; 87086-TC; 87186-TC; 90715; 94799-TC; A4216; A6253; A6402; A6403; C9113; G0378; J0692; J1650; J1815; J2020; J2185; J2920; J2930; J3370; J3475; J3480; J3490; J7030; J7040; J7042; J7050; J7060; Q9967

== ENCOUNTER 2018-09-02 21:34 | Inpatient (IN) | payer MEDICARE ==
[~2018-09-02] VITALS: Ht 182.9 cm; Wt 87.5 kg
[~2018-09-02 21:34] MED LIST: ACET650S26 PO; BLOO-668 IN; BUDE10.2 IH; DEXT50DI5 IV; DILT30TA2 PO; DOCU-141 PO; ENOX40DI SUBCUT; ESCI20TA PO; IBUP-1953 PO; INSU100V28 SQ; IPRA0.2S9 IH; LACT1CAP40 PO; LEVA1.257 IH; ONDA4TAB11 PO; ONDA4VIA52 IV; PANT40VI IV; PROCHLORPERAZINE 10 MG IV
--- NOTE | 2018-09-02 21:45 | NUR ---
PT BIBPA C/O "R SIDE WOUND INFECTED, DRAINING" AOX.4. +SOB NOTED. RT PAGED.
[2018-09-02] MEDS: ALBUTEROL FS 2.5 MG/3 ML VIAL.NEB NEB ONE ×3 (22:00→22:25)
[2018-09-02] MEDS ORDERED: IPRATROPIUM NEB FS 0.5 MG/2.5 ML AMPUL.NEB NEB ONE (22:00)
[2018-09-02] MEDS ORDERED: ALBUTEROL FS 2.5 MG/3 ML VIAL.NEB ONE ×2 (22:10→23:24)
[2018-09-02] MEDS ORDERED: IPRATROPIUM NEB FS 0.5 MG/2.5 ML AMPUL.NEB ONE (22:10)
[2018-09-02 22:22] LABS: BASOPHILS % (AUTO) 0.2 % (0.0-2.0); HEMATOCRIT 33 % (39-51); HEMOGLOBIN 9.9 g/dL (13.5-17.5); LYMPHOCYTES # (AUTO) 0.5 /CMM (0.8-4.8); MEAN CORPUSCULAR HGB CONC 30 g/dl (31.0-36.0); MEAN CORPUSCULAR VOLUME 74 fL (80-96); MONOCYTES # (AUTO) 0.7 /CMM (0.1-1.30); NEUTROPHILS # (AUTO) 23.1 /CMM (1.8-8.9); NEUTROPHILS % (AUTO) 94.8 % (43.0-81.0); PLATELET COUNT (AUTO) 301 /CMM (150-450); RED BLOOD CELL COUNT(AUTO) 4.45 MIL/uL (4.5-6.0); WHITE BLOOD COUNT (AUTO) 24.4 K/uL (4.3-11.0)
--- NOTE | 2018-09-02 22:26 | NUR ---
PT REFUSED ALBUTEROL. PT WAS CONCERNED THE ALBUTEROL WOULD CAUSE INCREASED HR RN AWARE Addendum: 09/02/18 at 2228 by OLU INIGUEZ RT Amended: Links added. Addendum: 09/02/18 at 2344 by OLU JENNINGS MEDICATION WASTED
[2018-09-02] MEDS ORDERED: CEFEPIME 1 GM VIAL ONE (22:28)
[2018-09-02] MEDS ORDERED: VANCOMYCIN 1 GM VIAL ONE (22:28)
[2018-09-02] MEDS ORDERED: ACETAMINOPHEN 325 MG TABLET ONE (22:29)
[2018-09-02 22:30] LABS: CALCIUM, SERUM 8.1 mg/dL (8.5-10.1); CARBON DIOXIDE 35 mmol/L (21-32); CHLORIDE 97 mmol/L (98-107); CREATININE 0.8 mg/dL (0.6-1.3); GLUCOSE 128 mg/dL (74-106); POTASSIUM 4.9 mmol/L (3.5-5.1); SODIUM SERUM 134 mmol/L (136-145); UREA NITROGEN, BLOOD 24 mg/dL (7-18)
[2018-09-02] MEDS ORDERED: IV NS 0.9% 1,000 ML IV ONE (22:30)
[2018-09-02] MEDS ORDERED: ACETAMINOPHEN 325 MG TABLET PO ONE (22:30)
[2018-09-02] MEDS ORDERED: VANCOMYCIN 1 GM in IV D5W 250 ML IV ONE (22:30)
--- NOTE | 2018-09-02 22:32 | NUR ---
CALLED [facility]SE [facility] FOR TELE BED
[2018-09-02 22:42] LABS: ALANINE AMINOTRANSFERASE 149 U/L (12-78); ALBUMIN 2.3 g/dL (3.4-5.0); ALKALINE PHOSPHATASE 136 U/L (46-116); ASPARTATE AMINOTRANSFERASE 41 U/L (15-37); B-TYPE NATRIURETIC PEPTIDE 197 PG/ML (0-125); BILIRUBIN,DIRECT 0.3 mg/dL (0.0-0.2); BILIRUBIN,TOTAL 0.6 mg/dL (0.2-1.0); TOTAL PROTEIN, SERUM 5.8 g/dL (6.4-8.2)
[2018-09-02] MEDS: CEFEPIME 2 GM in IV D5W 100 ML IV SCH ×2 (22:43→23:16)
--- NOTE | 2018-09-02 22:55 | NUR ---
TELE BED 107 GIVEN
[2018-09-02] MEDS ORDERED: methylPREDNISolone SOD SUCC 125 MG/2ML VIAL ONE (23:17)
[2018-09-02] MEDS ORDERED: ASPIRIN 325 MG TABLET ONE (23:18)
[2018-09-02] MEDS ORDERED: methylPREDNISolone SOD SUCC 125 MG/2ML VIAL IV ONE (23:30)
[2018-09-02] MEDS ORDERED: ASPIRIN 325 MG TABLET PO ONE (23:30)
[2018-09-02 23:41] LABS: BAND % (MANUAL) 3 % (0.0-5.0); LYMPHOCYTES % (MANUAL) 3 % (16-48); MONOCYTES % (MANUAL) 2 % (0-11.0); NEUTROPHILS % (MANUAL) 92 (42-76)
--- NOTE | 2018-09-02 23:44 | NUR ---
PT RECEIVED ALBUTEROL PER MD REQUEST. ALBUTEROL OBTAINED FROM THE PYXIS DUE TO FIRST BEING WASTED. Addendum: 09/02/18 at 2346 by OLU INIGUEZ RT Amended: Links added.
--- NOTE | 2018-09-02 23:59 | NUR ---
REPORT GIVEN TO JEREMIAS STEPHENSON
[2018-09-03] VITALS (9 sets, daily range): BP systolic 85–127; BP diastolic 33–65
[2018-09-03] MEDS ORDERED: METH40VI32 IV (00:08)
[2018-09-03] MEDS ORDERED: MERO1VIA3 IV (00:08)
[2018-09-03] MEDS ORDERED: ALBU2.5V13 NEB (00:08)
[2018-09-03] MEDS ORDERED: LINE600I IV (00:08)
[2018-09-03] MEDS: CEFEPIME 2 GM in IV D5W 100 ML IV SCH (00:12)
[2018-09-03 00:17] LABS: APPEARANCE,URINE CLEAR (CLEAR); BILIRUBIN,URINE NEGATIVE (NEGATIVE); BLOOD, URINE 3+ Ery/uL (NEGATIVE); COLOR,URINE YELLOW (YELLOW); KETONES,URINE NEGATIVE (NEGATIVE); LEUKOCYTE ESTERASE ,URINE TRACE (NEGATIVE); NITRITE, URINE NEGATIVE (NEGATIVE); PROTEIN,URINE 1+ mg/dl (NEGATIVE); UGLUCOSE NEGATIVE (NEGATIVE); UROBILINOGEN,URINE 0.2 EU/dL (0.2)
[2018-09-03 00:18] LABS: BACTERIA,URINE None seen /HPF (None Seen); SQUAMOUS EPITHELIAL CELL,UR Few /HPF (None Seen)
[2018-09-03] MEDS ORDERED: DOCUSATE SODIUM 100 MG CAPSULE PO PRN (00:30)
[2018-09-03] MEDS ORDERED: TEMAZEPAM 15 MG CAPSULE PO PRN (01:00)
[2018-09-03] MEDS ORDERED: ONDANSETRON HCL/PF 4 MG/2 ML VIAL IVP PRN (01:00)
[2018-09-03] MEDS ORDERED: CLONIDINE HCL 0.1 MG TABLET PO PRN (01:00)
--- NOTE | 2018-09-03 01:00 | NUR ---
NETWORKERSTRIKE OPERATIONS OFFICER NOTE: PT ADMITTED FROM ER VIA GURNEY. AT BEDSIDE. PT IS ALERT AND ORIENTED X3. ABLE TO MAKE NEEDS KNOWN. NO APPARENT DISTRESS NOTED. DENIES PAIN AND DISCOMFORT AT THIS TIME. ON 3LPM NASAL CANNULA, NO SOB NOTED AT THIS TIME, SATURATING WELL. RIGHT UPPER ARM PICC LINE INTACT AND PATENT. SINUS TACHY ON TELE MONITOR HR 125BPM. TEMP 100.4. DR VALLE AWARE REGARDING PATIENT'S VITAL SIGNS. PERTINENT ASSESSMENTS DONE. SKIN ISSUES NOTED, PICTURES TAKEN AND PLACED ON CHART. KEPT CLEAN, DRY AND COMFORTABLE. SAFETY AND FALL PRECAUTIONS OBSERVED AND MAINTAINED. WILL CONTINUE TO MONITOR PT.
[2018-09-03] MEDS ORDERED: TEMAZEPAM 7.5 MG CAPSULE PO PRN (01:30)
[2018-09-03] MEDS ORDERED: ENOXAPARIN SODIUM 80 MG/0.8 ML DISP.SYRIN SQ ONE (02:00)
[2018-09-03 06:12] LABS: HEMATOCRIT 29 % (39-51); HEMOGLOBIN 8.6 g/dL (13.5-17.5); LYMPHOCYTES # (AUTO) 0.4 /CMM (0.8-4.8); MEAN CORPUSCULAR HGB CONC 30 g/dl (31.0-36.0); MEAN CORPUSCULAR VOLUME 74 fL (80-96); MONOCYTES # (AUTO) 0.3 /CMM (0.1-1.30); MONOCYTES % (AUTO) 1.7 % (2.0-12.0); NEUTROPHILS # (AUTO) 16.8 /CMM (1.8-8.9); NEUTROPHILS % (AUTO) 96.3 % (43.0-81.0); PLATELET COUNT (AUTO) 251 /CMM (150-450); RED BLOOD CELL COUNT(AUTO) 3.88 MIL/uL (4.5-6.0); WHITE BLOOD COUNT (AUTO) 17.4 K/uL (4.3-11.0)
[2018-09-03 06:21] LABS: ALANINE AMINOTRANSFERASE 115 U/L (12-78); ALBUMIN 1.9 g/dL (3.4-5.0); ALKALINE PHOSPHATASE 108 U/L (46-116); ASPARTATE AMINOTRANSFERASE 33 U/L (15-37); BILIRUBIN,TOTAL 0.6 mg/dL (0.2-1.0); CALCIUM, SERUM 7.5 mg/dL (8.5-10.1); CARBON DIOXIDE 34 mmol/L (21-32); CHLORIDE 100 mmol/L (98-107); CREATININE 0.6 mg/dL (0.6-1.3); GLUCOSE 144 mg/dL (74-106); MAGNESIUM 1.9 mg/dL (1.8-2.4); PHOSPHORUS 3.6 mg/dL (2.5-4.9); POTASSIUM 4.9 mmol/L (3.5-5.1); SODIUM SERUM 136 mmol/L (136-145); UREA NITROGEN, BLOOD 21 mg/dL (7-18)
[2018-09-03 06:22] LABS: IRON, SERUM 8 ug/dl (50-175); TOTAL IRON BINDING CAPACITY 192 ug/dl (250-450)
[2018-09-03 06:28] LABS: CHOLESTEROL 119 mg/dL (<200); HDL CHOLESTEROL 38 mg/dL (40-60); LDL 67 mg/dL (0-99); TRIGLYCERIDES 90 mg/dL (30-150)
--- NOTE | 2018-09-03 06:39 | NUR ---
FIELD SERVICE SUPERVISOR NOTE: NO CHANGES NOTED THROUGHOUT THE SHIFT. NO APPARENT DISTRESS NOTED. NO COMPLAINTS OF PAIN OR DISCOMFORT AT THIS TIME. ON 3LPM NASAL CANNULA, NO SOB NOTED AT THIS TIME. SINUS TACHY ON TELE MONITOR HR 113BPM. KEPT CLEAN, DRY AND COMFORTABLE. SAFETY AND FALL PRECAUTIONS OBSERVED AND MAINTAINED. WILL ENDORSE TO DAY SHIFT RN FOR CONTINUITY OF CARE.
[2018-09-03 06:42] LABS: BAND % (MANUAL) 2 % (0.0-5.0); LYMPHOCYTES % (MANUAL) 2 % (16-48); MONOCYTES % (MANUAL) 1 % (0-11.0); NEUTROPHILS % (MANUAL) 95 (42-76)
--- NOTE | 2018-09-03 08:00 | NUR ---
MOLD BREAKER NOTE RECEIVED PATENT IN BED . ALERT ORIENTED X3, NO SOB NOTED, ON 3L OF O2 AT THIS TIME , IN TELE MONITOR, ST HR 122 USING URINAL WELL , RT UPPER ARM PICC LINE IN PLACE , BED IN LOWEST AND LOCKED POSITION , PLAN OF CARE DISUSED WITH PATIENT , WILL CONT TO MONITOR CLOSELY
[2018-09-03] MEDS: PANTOPRAZOLE 40 MG TABLET.DR PO SCH (08:26)
[2018-09-03] MEDS: DOCUSATE SODIUM 100 MG CAPSULE PO SCH ×2 (08:26→16:29)
[2018-09-03] MEDS ORDERED: DILTIAZEM HCL 30 MG TABLET PO SCH (09:00)
[2018-09-03] MEDS ORDERED: ENOXAPARIN SODIUM 40 MG/0.4 ML DISP.SYRIN SQ SCH (09:00)
[2018-09-03] MEDS: FLUTICASONE/VILANTEROL 1 EACH BLST.W.DEV IH SCH (09:32)
--- NOTE | 2018-09-03 10:00 | NUR ---
LIBERAL ARTS AND HUMANITIES CHAIR NOTE REPORTED TO DR SUTHERLAND LOCOMOTIVE OBSERVER THAT TROP LEVEL #1 [phone] AND REPEAT 0.738
[2018-09-03] MEDS ORDERED: FEE PK DOSING 1 MIN EA MC ONE (10:42)
[2018-09-03] MEDS ORDERED: PIPERACILLIN /TAZOBACTAM 3.375 G in IV D5W 50 ML IV ONE (11:00)
[2018-09-03] MEDS ORDERED: VANCOMYCIN 1 GM in IV D5W 250 ML IV SCH (11:00)
[2018-09-03] MEDS: FUROSEMIDE 40 MG/4 ML VIAL IV SCH ×3 (11:33→19:00)
--- NOTE | 2018-09-03 12:15 | NUR ---
SUPERIOR COURT JUSTICE NTE SEEN BY DR URRUTIA NOTIFIED THAT RT ARM IS SWOLLEN ,PICC LINE PATENT, ALSO OK TO CONT FULL LIQUID DIET
[2018-09-03] MEDS ORDERED: MEROPENEM 500 MG in IV NS 0.9% 50 ML IV SCH (12:30)
--- NOTE | 2018-09-03 12:44 | NUR ---
CLIENT RELATION SPECIALIST NOTE 2DECHO DONE ORDERED ALL NEEDS ATTENDED ,DRESSING CHANGE WILL ORDER WOUND CONSULT Addendum: 09/03/18 at 1437 by SVEN WALDEN RN CONT ATB VIA PICC LINE NOT IN DISTRESS , WILL MONITOR CLOSELY
[2018-09-03] MEDS: VANCOMYCIN HCL 125 MG/2.5 ML ORAL.SUSP PO SCH ×3 (13:08→23:18)
[2018-09-03] MEDS: MEROPENEM 1 G in IV NS 0.9% 100 ML IV SCH ×2 (13:09→21:15)
[2018-09-03] MEDS: LINEZOLID RTU BAG 600 MG in PREMIX 1 EA IV SCH ×2 (13:17→23:19)
--- NOTE | 2018-09-03 16:00 | NUR ---
COMMUNITY SERVICE REPRESENTATIVE NOTE SEEN BY STACEY STEPHENSON GENERATOR OPERATOR ID NOTIFIED THAT PATIENT HAS ABDOMINAL WOUND WITH SEVERE DRAINAGE GREENISH WITH SEVERE REDNESS AROUND , NEW ORDER GIVEN TO APPLY COLOSTOMY BAG ON DRAINAGE WOUND ,ORDER CARRIED OUT
[2018-09-03] MEDS ORDERED: PIPERACILLIN /TAZOBACTAM 3.375 G in IV D5W 100 ML IV SCH (17:00)
--- NOTE | 2018-09-03 17:32 | NUR ---
RESEARCH AND DEVELOPMENT TESTER NOTE T 100.8 AND C\O ABDOMINAL PAIN 6\7-10 TYLENOL PO GIVEN ORDERED , HR ON TELE MONITOR ST HR 138
[2018-09-03] MEDS: ACETAMINOPHEN ES 500 MG TABLET PO PRN (17:34)
--- NOTE | 2018-09-03 18:00 | NUR ---
TELE RNNOTE CALLED TO DR KOKO GARCIA THAT HR ST 140 ON TELE MONITOR NOTIFIED THAT FROM HOME WAS TAKING CARDIZEM 30 MG TID , WILL AWAIT FOR RETURN CALL
--- NOTE | 2018-09-03 18:40 | NUR ---
RADIO BOARD OPERATOR ANNOUNCER NOTE NOTED HR ST 135-145, CALLED TO DR RIOS TRAY CASTING MACHINE OPERATOR FOR DR URRUTIA AWAITING FOR RETURN CALL
--- NOTE | 2018-09-03 19:00 | NUR ---
HAZARDOUS MATERIAL TECHNICIAN NOTE DR VALLE WICKER WORKER FOR DR DO NOTIFIED THAT PATIENT HAS ST 135-145 ON TELE MONITOR WITH ORDER TO D\C LASIX AND DO CBC, BMP AND TROP
--- NOTE | 2018-09-03 19:20 | NUR ---
REPRODUCER NOTES DR SUTHERLAND ORDERED DILTIAZEM 240 MG PO DAILY AND ONE TIME NOW , WILL ENDORSE NEXT SHIFT RN
--- NOTE | 2018-09-03 19:38 | NUR ---
RN INITIAL NOTES: RECEIVED REPORT FROM SVEN STEPHENSON. PT IN BED, AWAKE , A/O X3 ON 3L NC RESPIRATION EVEN AND UNLABORED. PT HAS RIGHT UPPER ARM PICC LINE TLC, ALL FLUSHING WELL, WITH GOOD BLOOD RETURN NOTED. PT ALSO HAS WOUND ON THE ABDOMEN COVERED WITH COLOSTOMY BAG PER MD ORDER. AT BED SIDE. PT CLAIMED HE GOT THE WOUND FROM [facility] RE[facility] LAST MAR 2018. NOTED ITS OOZING AND YELLOWISH PURULENT DRAINAGE COMING OUT. PT ABLE TO TURN AND REPOSITION ON HIS OWN. ON FULL LIQUID DIET. PER MD TO CHIDI SINGH, PER REPORT BP ON LOW 90'S WILL RECHECK BEFORE GIVING DILTIAZEM NEW ORDER FROM CARDIO. GRADUATE TEACHER EDUCATION MADE AWARE OF HR ON SINUS TACH 118 HIGHEST 130'S. SAFETY PRECAUTIONS FOR FALL INITIATED, CALL LIGHT IN REACH, WILL CONTINUE MONITORING PT.
--- NOTE | 2018-09-03 19:40 | NUR ---
rn notes: noted abdominal wound leaking, cleansed the area with ns pat dry, skin protectant applied, placed colostomy bag per md order, no mycolog cream available per pharmacy, will be available in am, for now applied small thin layer of z guard, as pt's abdominal wound area is very red, excoriated
[2018-09-03] MEDS ORDERED: DILTIAZEM HCL CD 240 MG PO ONE (20:00)
--- NOTE | 2018-09-03 20:00 | NUR ---
rn notes: reported by zina recio that pt's bp taken on left arm was as follows: 82/45, 79/45, 81/45, 70/43 recheck on left leg result was 85/55 hr 114 pt denies any dizziness, light headedness, pain, n/v. family at bed side. will do manual bp
--- NOTE | 2018-09-03 20:10 | NUR ---
rn notes: recheck pt's bp manually together with supercharger repair supervisor, result obtained is 80/40. pt unable to keep his head on lower position he said he felt dizzy, denies any head ache light headedness at this time. pt asymptomatic, denies any pain. placed on tburg position, will wait for lab result, will recheck bp again in 30mins. will continue monitoring pt
[2018-09-03 20:13] LABS: HEMATOCRIT 27 % (39-51); HEMOGLOBIN 8.3 g/dL (13.5-17.5); LYMPHOCYTES # (AUTO) 0.5 /CMM (0.8-4.8); LYMPHOCYTES % (AUTO) 2.4 % (20.0-44.0); MEAN CORPUSCULAR HGB CONC 30 g/dl (31.0-36.0); MEAN CORPUSCULAR VOLUME 74 fL (80-96); MONOCYTES # (AUTO) 1.2 /CMM (0.1-1.30); MONOCYTES % (AUTO) 5.7 % (2.0-12.0); NEUTROPHILS # (AUTO) 19.3 /CMM (1.8-8.9); NEUTROPHILS % (AUTO) 91.9 % (43.0-81.0); PLATELET COUNT (AUTO) 196 /CMM (150-450); RED BLOOD CELL COUNT(AUTO) 3.69 MIL/uL (4.5-6.0)
[2018-09-03 20:17] LABS: CALCIUM, SERUM 7.7 mg/dL (8.5-10.1); CARBON DIOXIDE 35 mmol/L (21-32); CHLORIDE 96 mmol/L (98-107); CREATININE 0.8 mg/dL (0.6-1.3); GLUCOSE 111 mg/dL (74-106); SODIUM SERUM 135 mmol/L (136-145); UREA NITROGEN, BLOOD 24 mg/dL (7-18)
--- NOTE | 2018-09-03 20:29 | NUR ---
critical lab troponin: received troponin result of 0.465, reported by yogi boles from lab, contacted epic exchange, awaiting call back
--- NOTE | 2018-09-03 20:30 | NUR ---
RN NOTES: FOUND MYCOLOG CREAM IN PT'S CASSETTE, APPLIED TO WOUND ORDERED BY
--- NOTE | 2018-09-03 20:39 | NUR ---
rn notes: all lab result were in, recheck bp manually result is 80/50 on left arm, recheck three times, still getting same result, left leg bp check same result for 80/50. contacted [facility]
--- NOTE | 2018-09-03 20:42 | NUR ---
rn notes: notified heat regulator regarding pt's bp and unable to give diltiazem due to low bp, informed bp was check manually, heat regulator called back with t/o to give NS 500 bolus. read back completed and verified.
--- NOTE | 2018-09-03 20:51 | NUR ---
RN NOTES: spoked with md instrumentation tech, informed about pt's lab result and bp, informed about modern dancer order for 500ml ns bolus, he stated he will be here in 30mins
[2018-09-03] MEDS ORDERED: IV NS 0.9% 500 ML IV ONE (21:00)
[2018-09-03] MEDS ORDERED: DEXTROSE 50%-WATER 50 ML DISP.SYRIN IV PRN (21:00)
[2018-09-03] MEDS ORDERED: INSULIN REGULAR, HUMAN 100 UNIT/ML 3 ML VIAL SQ PRN (21:00)
[2018-09-03] MEDS: ESCITALOPRAM OXALATE (10 MG) 10 MG TABLET PO SCH (21:29)
[2018-09-03] MEDS: BLOOD SUGAR DIAGNOSTIC 1 EACH STRIP IN SCH (21:30)
[2018-09-03] MEDS: ENOXAPARIN SODIUM 80 MG/0.8 ML DISP.SYRIN SQ SCH (21:31)
--- NOTE | 2018-09-03 21:32 | NUR ---
accuyu check 104: bs 104, no insulin coverage per sliding scale, will monitor for any s/s of hypoglycemia
[2018-09-03 21:56] LABS: BAND % (MANUAL) 9 % (0.0-5.0); LYMPHOCYTES % (MANUAL) 2 % (16-48); MONOCYTES % (MANUAL) 6 % (0-11.0); NEUTROPHILS % (MANUAL) 82 (42-76); REACTIVE LYMPHOCYTES 1 % (0-0)
[2018-09-03] MEDS ORDERED: IV NS 0.9% 250 ML IV ONE (22:00)
--- NOTE | 2018-09-03 22:00 | NUR ---
rn notes: pt's stated pt been on tpn for 3months, and asking why he's not receiving tpn here,will review pt's chart from snf
--- NOTE | 2018-09-03 22:30 | NUR ---
rn notes: pt stated he' been voiding a lot due to lasix, he stated he's too weak to hold the urinal and when he feels the urge to urinate, urine is already coming out, pt requested for diaper.
--- NOTE | 2018-09-03 23:38 | NUR ---
RN NOTES: MERCHANDISING INTERNSHIP MD CURRENTLY IN THE UNIT MADE AWARE OF LATEST VS AND HR 120-130'S,LATEST LAB RESULT, LATEST BP 113/39, PT ASYMPTOMATIC, WOULD LIKE TO SLEEP AND DOESN'T WANT TO BE BOTHER, PER MD NO NEW ORDERS, CONTINUE MONITORING PT
[2018-09-04] VITALS (42 sets, daily range): BP systolic 76–154; BP diastolic 39–87
--- NOTE | 2018-09-04 | NUR ---
rn notes: paper from [facility] regarding tpn concentration/percent/formula found but dated august 28, notified care nurse rn, as pt was admitted september 02, per care nurse rn to follow up in am regarding the tpn to get latest concentration/order of tpn from snf
--- NOTE | 2018-09-04 00:05 | NUR ---
RN NOTES: DATA SCIENCE AND IOT MANAGER MD STILL IN THE UNIT, RELAYED ABOUT PT BEING ON TPN X 3MONTHS, PER MD WILL TAKE A LOOK AT IT
[2018-09-04] MEDS: IPRATROPIUM NEB FS 0.5 MG/2.5 ML AMPUL.NEB NEB PRN ×2 (00:40→21:18)
[2018-09-04] MEDS: LEVALBUTEROL HCL NEB 1.25 MG/0.5 ML VIAL.NEB NEB PRN ×2 (00:41→21:19)
--- NOTE | 2018-09-04 00:57 | NUR ---
RECEIVED CALL FROM LAB ([facility]) REGARDING PATIENT'S POSITIVE BLOOD CULTURE PRELIMINARY GRAM STAIN: BUDDING YEAST AND GRAM POSITIVE COCCI IN CLUSTERS. WILL NOTIFY MD/NURSE.
--- NOTE | 2018-09-04 01:10 | NUR ---
rn notes: notified md regarding result of blood culture, made aware pt on merrem atb, zyvox and vancocin oral for cdiff. per md to add Diflucan 100mg IV daily for 5days.
[2018-09-04] MEDS ORDERED: FLUCONAZOLE IN NS 100 ML IV ONE (01:18)
[2018-09-04] MEDS ORDERED: FLUCONAZOLE IN NS 100 MG in PREMIX 1 EA IV SCH ×2 (01:30)
[2018-09-04] MEDS: ACETAMINOPHEN ES 500 MG TABLET PO PRN (01:36)
--- NOTE | 2018-09-04 01:37 | NUR ---
RN NOTES: PT HAS EMMANUEL PICC LINE TRIPLE LUMEN. NEW MD ORDER, MEDICATION OVERRIDE BY SACHIN MULLER. ONLY AVAILABLE MEDICATION DOSE IS FLUCONAZOLE 200MG PER 100ML, WILL ADMINISTER ONLY HALF JUST THE ORDER DOSE WHICH IS DIFLUCAN 100MG/50ML, ACCOUNTS RECEIVABLE SPECIALIST WITNESS.
--- NOTE | 2018-09-04 01:38 | NUR ---
PRN TYLENOL: PT C/O ABDOMINAL PAIN REQUESTING FOR TYLENOL, PRN TYLENOL 1000 MG TAB PO ADMINISTERED, PT DRINK 50ML OF POMEGRANATE JUICE
[2018-09-04] MEDS: MORPHINE SULFATE INJ 2 MG/ML DISP.SYRIN IV PRN ×2 (01:52→19:35)
--- NOTE | 2018-09-04 01:54 | NUR ---
PRN MORPHINE: AFTER GIVING TYLENOL, PT STILL C/O ABDOMINAL PAIN STATED MORE BURNING AND SHARP, PS 01/06 NOW ACCDG TO PT, PT IS MOANING IRRITABLE, RESTLESS AND RUBBING SITE, INFORMED MD ABOUT PT'S VS AND C/O SO MUCH PAIN, PER MD OKAY TO GIVE MORPHINE THE PAIN CAN ALSO AGGRAVATE THE HR OF PT, AND CONTINUE MONITORING VS, PRN MORPHINE ADMINISTERED AT THIS TIME, WILL CONTINUE TO MONITOR AND REASSESS PT
--- NOTE | 2018-09-04 04:31 | NUR ---
RN NOTES: COOLING MEASURES PROVIDED TEMP 99.8, TYLENOL ADMINISTERED AT 0138AM, ORDER IS Q8HRS, PT REFUSING TO REMOVE EXTRA BLANKET STATED HE;S FEELING COLD. EDUCATION PROVIDED TO PT.
[2018-09-04] MEDS: MEROPENEM 1 G in IV NS 0.9% 100 ML IV SCH ×3 (05:01→20:09)
[2018-09-04] MEDS: VANCOMYCIN HCL 125 MG/2.5 ML ORAL.SUSP PO SCH ×4 (05:01→23:15)
--- NOTE | 2018-09-04 05:30 | NUR ---
rn notes: assisted responder in providing bed bath to the pt, complete linen change provided, noted skin bleeding minimal amount due to severe irritation of the skin from oozing drainage. applied pressure dressing, then wound care performed as ordered, cleansed abdominal wound with ns pat dry, skin protectant applied prior to putting colostomy bag, applied mycolog cream around abdl wound.
--- NOTE | 2018-09-04 06:31 | NUR ---
RN CLOSING NOTES: PT IN BED, AWAKE, REMAINS ON 3L OXYGEN VIA NC, SPO2 93%, ON SINUS TACHYCARDIA HR 106, HIGHEST 140, MD AWARE. PT ASLEEP APPEARS CALM AND COMFORTABLE, NO FACIAL GRIMACE NOTED. ABDOMINAL WOUND REMAINS COVERED WITH COLOSTOMY BAG. EMMANUEL PICC LINE REMAINS PATENT AND FLUSHING WELL, ALL PORTS ABLE TO FLUSH WITH GOOD BLOOD RETURN NOTED. STILL AWAITING FOR ORDER FOR TPN. BLE KEPT OFFLOADED ON PILLOWS. NEEDS ATTENDED AND ANTICIPATED. SAFETY PRECAUTIONS FOR FALL INITIATED, CALL LIGHT IN REACH, WILL ENDORSE TO DAY RN FOR CONTINUITY OF CARE.
[2018-09-04 06:40] LABS: BASOPHILS % (AUTO) 0.1 % (0.0-2.0); EOSINOPHILS % (AUTO) 0.1 % (0.0-6.0); HEMATOCRIT 27 % (39-51); HEMOGLOBIN 8.2 g/dL (13.5-17.5); LYMPHOCYTES # (AUTO) 0.5 /CMM (0.8-4.8); LYMPHOCYTES % (AUTO) 2.8 % (20.0-44.0); MEAN CORPUSCULAR HGB CONC 30 g/dl (31.0-36.0); MEAN CORPUSCULAR VOLUME 74 fL (80-96); MONOCYTES # (AUTO) 1.2 /CMM (0.1-1.30); MONOCYTES % (AUTO) 6.5 % (2.0-12.0); NEUTROPHILS # (AUTO) 16.2 /CMM (1.8-8.9); NEUTROPHILS % (AUTO) 90.5 % (43.0-81.0); PLATELET COUNT (AUTO) 200 /CMM (150-450); RED BLOOD CELL COUNT(AUTO) 3.71 MIL/uL (4.5-6.0); WHITE BLOOD COUNT (AUTO) 17.9 K/uL (4.3-11.0)
[2018-09-04 07:02] LABS: ALANINE AMINOTRANSFERASE 86 U/L (12-78); ALBUMIN 1.7 g/dL (3.4-5.0); ALKALINE PHOSPHATASE 95 U/L (46-116); ASPARTATE AMINOTRANSFERASE 29 U/L (15-37); BILIRUBIN,TOTAL 0.8 mg/dL (0.2-1.0); CALCIUM, SERUM 7.6 mg/dL (8.5-10.1); CARBON DIOXIDE 33 mmol/L (21-32); CHLORIDE 99 mmol/L (98-107); GLUCOSE 110 mg/dL (74-106); MAGNESIUM 1.8 mg/dL (1.8-2.4); PHOSPHORUS 3.3 mg/dL (2.5-4.9); POTASSIUM 3.9 mmol/L (3.5-5.1); SODIUM SERUM 137 mmol/L (136-145); TOTAL PROTEIN, SERUM 4.7 g/dL (6.4-8.2); UREA NITROGEN, BLOOD 27 mg/dL (7-18)
--- NOTE | 2018-09-04 07:15 | NUR ---
SHOT PEEN OPERATOR OPENING NOTES: PT IN BED, AWAKE, ON 3L OXYGEN VIA NC, SPO2 96%, RR EVEN AND UNLABORED. ON TELE MONITOR SINUS TACHYCARDIA WITH HR 104, NO PAIN NOTED AT THIS TIME. NO FACIAL GRIMACE NOTED. ABDOMINAL WOUND REMAINS COVERED WITH COLOSTOMY BAG. SITE CDI. EMMANUEL PICC LINE REMAINS PATENT AND FLUSHING WELL, ALL PORTS ABLE TO FLUSH WITH GOOD BLOOD RETURN NOTED. WILL F/U WITH TPN ORDER. BLE KEPT OFFLOADED ON PILLOWS. SAFETY PRECAUTIONS FOR FALL INITIATED, CALL LIGHT IN REACH, WILL CONT TO MONITOR PT CLOSELY.
[2018-09-04 07:48] LABS: BAND % (MANUAL) 6 % (0.0-5.0); LYMPHOCYTES % (MANUAL) 2 % (16-48); MONOCYTES % (MANUAL) 6 % (0-11.0); NEUTROPHILS % (MANUAL) 86 (42-76)
[2018-09-04] MEDS: BLOOD SUGAR DIAGNOSTIC 1 EACH STRIP IN SCH ×4 (07:50→21:14)
[2018-09-04] MEDS: PANTOPRAZOLE 40 MG TABLET.DR PO SCH (08:23)
[2018-09-04] MEDS: DOCUSATE SODIUM 100 MG CAPSULE PO SCH ×2 (08:39→16:20)
[2018-09-04] MEDS: ENOXAPARIN SODIUM 80 MG/0.8 ML DISP.SYRIN SQ SCH ×2 (08:41→20:12)
[2018-09-04] MEDS ORDERED: DILTIAZEM HCL CD 240 MG PO SCH (09:00)
[2018-09-04] MEDS: LINEZOLID RTU BAG 600 MG in PREMIX 1 EA IV SCH ×2 (09:20→20:09)
[2018-09-04] MEDS: FLUTICASONE/VILANTEROL 1 EACH BLST.W.DEV IH SCH (09:43)
--- NOTE | 2018-09-04 11:30 | NUR ---
SCIENTIFIC PHOTOGRAPHER NOTES PATIENT ROUNDING WITH MD. WILL ATTEND TO ALL MD ORDERS.
[2018-09-04 12:02] LABS: ABG BASE EXCESS 10.4 mmol/L; ABG OXYGEN SATURATION 91.6 % (92.0-98.5); ABG PCO2 47.6 mmHg (35.0-45.0); ABG PH 7.485 (7.350-7.450); ABG PO2 61.8 mmHg (75.0-100.0); AaDO2 96.2 mmHg; COHb 0.1 % (0.5-1.5); MetHb 1.1 % (0.0-1.5); O2Hb 90.5 % (94.0-97.0); SITE, ABG Right Radial; VENT MODE, BG NC 2L
--- NOTE | 2018-09-04 12:25 | NUR ---
INSPECTOR ELEVATORSSHOE CLERK NOTES GAVE PATIENT REPORT TO DAVY AT 1200 FOR MICHELLE. VITAL SIGNS: TEMP 97.8, HR 134, RESP 20, O2 SAT 88, BLOOD PRESSURE 145/84. PATIENT COMPLAINS OF CRUSHING CHEST PAIN 03/08, MD AWARE. TRANSFERRED PT VIA BED FROM ROOM 206 TO ICU ROOM 259 WITH RT AT BEDSIDE. ALL MD ORDERS ATTENDED. SACHIN PEREZ AT BEDSIDE.
--- NOTE | 2018-09-04 12:50 | NUR ---
ICU/RN: Dr Busby notified of pt c/o 03/08 chest pain; temperature 102.8, ST 130's on monitor. EKG ongoing. Orders for 1 time dose nitro SL noted. Pt updated.
--- NOTE | 2018-09-04 12:55 | NUR ---
WOUND CARE CONSULT WOUND CARE RECEIVED CONSULT FOR WOUND ON ABDOMEN. WOUND CARE WILL DEFER CONSULT AND TREATMENT PLANS TO PLASTIC SURGICAL TEAM WHO HAVE BEEN NOTIFIED OF THE CONSULT. PATIENT WITH KIMI AT 13, ALL PRESSURE ULCER PREVENTION MEASURES ARE NOTED TO BE IN PLACE AT THIS TIME. WILL SEE PRN.
[2018-09-04] MEDS ORDERED: NITROGLYCERIN 0.4 MG/TAB BOTTLE SL ONE (13:00)
[2018-09-04] MEDS ORDERED: FUROSEMIDE 40 MG/4 ML VIAL IV SCH (15:00)
[2018-09-04] MEDS ORDERED: POTASSIUM CHLORIDE 20 MEQ TAB.PRT.SR PO SCH (15:00)
--- NOTE | 2018-09-04 15:20 | NUR ---
ICU/RN: Dr Gamble notified; unable to administer Lasix, BP trending down to 80's. Per MD, hold lasix, potassium replacements. Start on Levophed. post hole digging machine operator updated.
[2018-09-04] MEDS: POTASSIUM CHLORIDE 20 MEQ POWDER PACKET GT SCH ×3 (15:23→17:30)
[2018-09-04] MEDS ORDERED: NOREPINEPHRINE 16 MG in IV D5W 500 ML IV PRN (15:30)
[2018-09-04] MEDS ORDERED: DOSE PER PHARMACY MICAFUNGIN 1 EA XX PRN (16:00)
--- NOTE | 2018-09-04 16:00 | NUR ---
ICU/RN: Pt reports relief from pain, cooling measures effective. Temp down to 100.4F. Pt compliant with poc.
--- NOTE | 2018-09-04 16:15 | NUR ---
ICU/RN: Spoke with Dr Busby, updated on pt status. Lactic acid at 1.0; s/b Dr Gamble, Dr Villa and Dr Mackay. Per MD, [place] [facility] [place]'s previous [place].
[2018-09-04] MEDS: NYSTATIN/TRIAMCIN CREAM 15 GM TUBE TP SCH (16:18)
[2018-09-04] MEDS: MICAFUNGIN SODIUM 100 MG in IV NS 0.9% 100 ML IV SCH (16:19)
--- NOTE | 2018-09-04 18:00 | NUR ---
ICU/RN: Pt and educated extensively at bedside regarding POC. Pending transfer to [facility] [place] for higher level of care. Pt temp now 98.3.
[2018-09-04] MEDS: IV D5/ 0.9% NACL 1,000 ML IV PRN (18:28)
--- NOTE | 2018-09-04 19:30 | NUR ---
MILLINERY WORKER INITIAL SHIFT NOTES RECEIVED PATIENT IN BED, AWAKE, ALERT AND ORIENTED X3, ABLE TO VERBALIZE NEEDS. BREATHING EVEN AND NONLABORED, TOLERATING O2 VIA NC @ 2LPM, NO RESPIRATORY DISTRESS NOTED. BEDSIDE MONITORING SHOWS HR OF 115 BPM, SINUS TACHYCARDIA, WITH OCCASIONAL PACs. RASMUSSEN CATHETER PATENT AND INTACT, DRAINING PINK COLORED URINE, HEMATURIA, WILL MONITOR URINE OUTPUT CLOSELY. EMMANUEL PICC C/D/P/I, RUNNING D5NS @ 100ML/HR AND LEVOPHED GTT, WILL TITRATE ACCORDINGLY PATIENT TOLERATES. COLOSTOMY BAG X2 NOTED ON PATIENT'S ABDOMEN, INTACT. ISOLATION PRECAUTIONS OBSERVED
--- NOTE | 2018-09-04 19:42 | NUR ---
INSULATION SPRAYER NOTES PATIENT WITH C/O 9/10 CHEST PAIN, SHARP IN NATURE, NONRADIATING. MORPHINE 2MG IVP ADMINISTERED PRESCRIBED. WILL MONITOR CLOSELY
--- NOTE | 2018-09-04 20:30 | NUR ---
R AND D LAB TECHNICIAN NOTES PATIENT'S AT BEDSIDE, PATIENT'S HR NOTED TO INCREASE TO 140s, SINUS TACHYCARDIA, SUSTAINING, PREVIOUSLY 110 BPM BEFORE HER ARRIVAL. DISCUSSED THE PLAN OF CARE WITH THE PATIENT'S . REASSURED PATIENT SAFETY, PATIENT'S IN AGREEMENT TO LEAVE THE BEDSIDE AND LET THE PATIENT REST. WILL CONTINUE TO CLOSELY MONITOR
[2018-09-04] MEDS: ACETAMINOPHEN 650 MG/20.3 ML UDC PO PRN (21:14)
[2018-09-04] MEDS: ESCITALOPRAM OXALATE (10 MG) 10 MG TABLET PO SCH (21:14)
[2018-09-05] VITALS (68 sets, daily range): BP systolic 76–147; BP diastolic 35–92
--- NOTE | 2018-09-05 | NUR ---
CANDY DEPARTMENT MANAGER NOTES RECEIVED CALL FROM PATIENT'S DANIELE [phone]. PATIENT'S VS STABLE AT THIS TIME, UPDATE GIVEN.
--- NOTE | 2018-09-05 04:00 | NUR ---
VALET ATTENDANT NOTES PATIENT WITH 102.7 ORAL TEMP. COOLING MEASURES INITIATED, TEMP AFTER 1 HOUR = 99.1. WILL CONTINUE TO CLOSELY MONITOR
[2018-09-05] MEDS: ACETAMINOPHEN 650 MG/20.3 ML UDC PO PRN (04:05)
[2018-09-05 04:30] LABS: BASOPHILS % (AUTO) 0.1 % (0.0-2.0); EOSINOPHILS % (AUTO) 0.7 % (0.0-6.0); HEMATOCRIT 27 % (39-51); HEMOGLOBIN 8.3 g/dL (13.5-17.5); LYMPHOCYTES # (AUTO) 0.9 /CMM (0.8-4.8); LYMPHOCYTES % (AUTO) 4.9 % (20.0-44.0); MEAN CORPUSCULAR HGB CONC 31 g/dl (31.0-36.0); MEAN CORPUSCULAR VOLUME 73 fL (80-96); MONOCYTES # (AUTO) 1.4 /CMM (0.1-1.30); MONOCYTES % (AUTO) 8.1 % (2.0-12.0); NEUTROPHILS # (AUTO) 15.1 /CMM (1.8-8.9); NEUTROPHILS % (AUTO) 86.2 % (43.0-81.0); PLATELET COUNT (AUTO) 191 /CMM (150-450); RED BLOOD CELL COUNT(AUTO) 3.68 MIL/uL (4.5-6.0); WHITE BLOOD COUNT (AUTO) 17.5 K/uL (4.3-11.0)
[2018-09-05 05:02] LABS: ALANINE AMINOTRANSFERASE 80 U/L (12-78); ALBUMIN 1.6 g/dL (3.4-5.0); ALKALINE PHOSPHATASE 117 U/L (46-116); ASPARTATE AMINOTRANSFERASE 29 U/L (15-37); CALCIUM, SERUM 7.5 mg/dL (8.5-10.1); CARBON DIOXIDE 34 mmol/L (21-32); CHLORIDE 99 mmol/L (98-107); CREATININE 1.1 mg/dL (0.6-1.3); GLUCOSE 122 mg/dL (74-106); MAGNESIUM 1.9 mg/dL (1.8-2.4); PHOSPHORUS 3.5 mg/dL (2.5-4.9); POTASSIUM 3.5 mmol/L (3.5-5.1); SODIUM SERUM 138 mmol/L (136-145); UREA NITROGEN, BLOOD 32 mg/dL (7-18)
[2018-09-05 05:06] LABS: LYMPHOCYTES % (MANUAL) 5 % (16-48); MONOCYTES % (MANUAL) 9 % (0-11.0); NEUTROPHILS % (MANUAL) 86 (42-76)
[2018-09-05] MEDS: MEROPENEM 1 G in IV NS 0.9% 100 ML IV SCH ×3 (05:29→20:21)
[2018-09-05] MEDS: VANCOMYCIN HCL 125 MG/2.5 ML ORAL.SUSP PO SCH ×2 (05:29→11:29)
[2018-09-05] MEDS: IV D5/ 0.9% NACL 1,000 ML IV PRN ×2 (05:34→15:10)
--- NOTE | 2018-09-05 06:30 | NUR ---
METAL HANGING SUPERVISOR CLOSING NOTES PATIENT SLEEPING COMFORTABLY IN BED. RASMUSSEN CATHETER CONTINUES TO DRAIN PINK URINE, HEMATURIA, IMPROVING SINCE START OF SHIFT. LEVOPHED GTT TITRATED DOWN TO 1MCG/MIN, UNABLE TO TITRATE OFF BP NOTED TO DROP DOWN TO 70s. WILL ENDORSE THE PATIENT TO THE AM SHIFT NURSE FOR CONTINUITY OF CARE
--- NOTE | 2018-09-05 07:10 | NUR ---
RN INITIAL NOTES RECEIVED PT AWAKE, A/OX3. ON 02 VIA NC AT 2LPM. NO RESPIRATORY DISTRESS NOTED. NO SOB NOTED. DENIES ANY PAIN. EMMANUEL PICC IN PLACE. ON LEVO AT 1MCG/MIN. IVF INFUSING. FC IN PLACE. NO HEMATURIA NOTED. BLE ELEVATED. CALL LIGHT WITHIN REACH. WILL MONITOR
[2018-09-05] MEDS: BLOOD SUGAR DIAGNOSTIC 1 EACH STRIP IN SCH ×4 (07:49→21:17)
[2018-09-05] MEDS: DOCUSATE SODIUM 100 MG CAPSULE PO SCH ×2 (08:13→16:11)
[2018-09-05] MEDS: PANTOPRAZOLE 40 MG TABLET.DR PO SCH (08:13)
[2018-09-05] MEDS: LINEZOLID RTU BAG 600 MG in PREMIX 1 EA IV SCH ×2 (08:13→20:21)
[2018-09-05] MEDS: NYSTATIN/TRIAMCIN CREAM 15 GM TUBE TP SCH ×2 (08:14→16:11)
[2018-09-05] MEDS: FLUTICASONE/VILANTEROL 1 EACH BLST.W.DEV IH SCH (08:14)
--- NOTE | 2018-09-05 10:00 | NUR ---
RN NOTES 09 SEEN AND EXAMINED BY DR ARRIOLA. PT ON 02 VIA PA. NO RESPIRATORY DISTRESS NOTED. HOB ELEVATED. PT ON LEVO AT 1MCG/MIN. WILL CONTINUE TO MONITOR. 1000 SEEN AND EXAMINED BY KERRIE SUMNER NP. AWARE OF LAB VALUES AND CXR RESULT. EMMANUEL VENOUS DOPPLER, NEGATIVE FOR DVT. PT STILL ON LEVO. SBP KEPT> 90MMHG. TRANSFER TO [facility] PENDING. WILL CONTINUE TO MONITOR
[2018-09-05] MEDS: SOD FERRIC GLUC 125 MG in IV NS 0.9% 100 ML IV SCH (14:17)
[2018-09-05] MEDS: MICAFUNGIN SODIUM 100 MG in IV NS 0.9% 100 ML IV SCH (16:11)
--- NOTE | 2018-09-05 18:39 | NUR ---
RN CLOSING NOTES NO SIGNIFICANT CHANGE NOTED. NO RESPIRATORY DISTRESS NOTED. NO SOB NOTED. KEPT HOB ELEVATED. DENIES ANY PAIN. TX PROVIDED ORDERED. KEPT CLEAN AND DRY. REPOSITIONED Q2. BLE ELEVATED. ALL NEEDS ATTENDED AND MET. CALL LIGHT WITHIN REACH. WILL ENDORSE FOR CONTINUITY OF CARE.
--- NOTE | 2018-09-05 19:30 | NUR ---
CITY ROUTE DRIVER INITIAL SHIFT NOTES RECEIVED PATIENT IN BED, AWAKE, ALERT AND ORIENTED X3, ABLE TO VERBALIZE NEEDS. BREATHING EVEN AND NONLABORED, TOLERATING O2 VIA NC @ 2LPM, NO RESPIRATORY DISTRESS NOTED. BEDSIDE MONITORING SHOWS HR OF 105 BPM, SINUS TACHYCARDIA, WITH OCCASIONAL PACs. RASMUSSEN CATHETER PATENT AND INTACT, YELLOW/ORANGE COLORED URINE WITH SEDIMENTS. EMMANUEL PICC C/D/P/I, RUNNING D5NS @ 100ML/HR. COLOSTOMY BAG X2 NOTED ON PATIENT'S ABDOMEN, INTACT. ISOLATION PRECAUTIONS OBSERVED. WILL CONTINUE TO CLOSELY MONITOR
--- NOTE | 2018-09-05 20:00 | NUR ---
PRODUCT COORDINATOR NOTES PATIENT NOTED WITH EPISODE OF DIARRHEA X1. AFTER GIVING BED BATH, DIAPER APPLIED PER PATIENT REQUEST
[2018-09-05] MEDS: ESCITALOPRAM OXALATE (10 MG) 10 MG TABLET PO SCH (21:16)
[2018-09-06] VITALS (14 sets, daily range): BP systolic 84–151; BP diastolic 41–87
--- NOTE | 2018-09-06 | NUR ---
MEDICARE NURSE NOTES PATIENT RESTING COMFORTABLY IN BED, NO FEVER NOTED
[2018-09-06] MEDS: IV D5/ 0.9% NACL 1,000 ML IV PRN (03:00)
[2018-09-06] MEDS ORDERED: IV NS 0.9% 250 ML IV PRN (03:00)
[2018-09-06 04:37] LABS: BASOPHILS # (AUTO) 0.1 /CMM (0.0-0.2); BASOPHILS % (AUTO) 0.5 % (0.0-2.0); EOSINOPHILS % (AUTO) 0.6 % (0.0-6.0); HEMATOCRIT 25 % (39-51); HEMOGLOBIN 7.6 g/dL (13.5-17.5); LYMPHOCYTES # (AUTO) 0.6 /CMM (0.8-4.8); LYMPHOCYTES % (AUTO) 3.6 % (20.0-44.0); MEAN CORPUSCULAR HGB CONC 30 g/dl (31.0-36.0); MEAN CORPUSCULAR VOLUME 74 fL (80-96); MONOCYTES % (AUTO) 5.9 % (2.0-12.0); NEUTROPHILS % (AUTO) 89.4 % (43.0-81.0); PLATELET COUNT (AUTO) 142 /CMM (150-450); RED BLOOD CELL COUNT(AUTO) 3.39 MIL/uL (4.5-6.0); WHITE BLOOD COUNT (AUTO) 16.8 K/uL (4.3-11.0)
[2018-09-06 04:47] LABS: ALANINE AMINOTRANSFERASE 57 U/L (12-78); ALKALINE PHOSPHATASE 129 U/L (46-116); ASPARTATE AMINOTRANSFERASE 19 U/L (15-37); BILIRUBIN,TOTAL 0.5 mg/dL (0.2-1.0); CALCIUM, SERUM 7.1 mg/dL (8.5-10.1); CARBON DIOXIDE 31 mmol/L (21-32); CHLORIDE 102 mmol/L (98-107); CREATININE 1.3 mg/dL (0.6-1.3); GLUCOSE 119 mg/dL (74-106); MAGNESIUM 2.1 mg/dL (1.8-2.4); PHOSPHORUS 3.9 mg/dL (2.5-4.9); POTASSIUM 3.3 mmol/L (3.5-5.1); SODIUM SERUM 139 mmol/L (136-145); TOTAL PROTEIN, SERUM 4.8 g/dL (6.4-8.2); UREA NITROGEN, BLOOD 30 mg/dL (7-18)
[2018-09-06 05:03] LABS: ALBUMIN 1.4 g/dL (3.4-5.0)
[2018-09-06] MEDS: MEROPENEM 1 G in IV NS 0.9% 100 ML IV SCH ×3 (05:08→23:41)
--- NOTE | 2018-09-06 06:59 | NUR ---
RETAIL GREETER CLOSING NOTES NO ACUTE CHANGES THROUGHOUT THE SHIFT. NO FURTHER EPISODES OF DIARRHEA NOTED. WILL ENDORSE THE PATIENT TO THE AM SHIFT NURSE FOR CONTINUITY OF CARE
--- NOTE | 2018-09-06 07:00 | NUR ---
FRUIT PITTER OPENING NOTES RECEIVED PT IN BED SEMI STANLEY'S POSITION, ASLEEP BUT EASILY AROUSABLE. A/OX3. O2 SAT WNL. SLIGHT WHEEZING NOTED IN BILAT LOWER LUNG BRAGA. ON 2L NC. ON TELE ST 100-110. F/C IN PLACE DRAINING CLEAR YELLOW URINE. [address], DRAINING FISTULAS. EMMANUEL PICC IN PLACE WITH IV FLUIDS AND ANTIBIOTICS RUNNING. EDEMA NOTED BILAT LOWER EXTREMITIES. CAP REFILL LESS THAN 2 SEC. ELEVATED LEGS ON PILLOWS. BED IN LOCKED/LOWEST POSITION. CALL LIGHT IN REACH. WILL CONT TO MONITOR.
[2018-09-06] MEDS: BLOOD SUGAR DIAGNOSTIC 1 EACH STRIP IN SCH ×4 (08:02→21:40)
[2018-09-06] MEDS: DOCUSATE SODIUM 100 MG CAPSULE PO SCH ×2 (08:17→17:00)
[2018-09-06] MEDS: POTASSIUM CHLORIDE 20 MEQ TAB.PRT.SR PO SCH ×2 (08:17→09:50)
[2018-09-06] MEDS: PANTOPRAZOLE 40 MG TABLET.DR PO SCH (08:17)
[2018-09-06 08:41] LABS: ABG BASE EXCESS 6.9 mmol/L; ABG OXYGEN SATURATION 89.7 % (92.0-98.5); ABG PCO2 63.7 mmHg (35.0-45.0); ABG PH 7.342 (7.350-7.450); ABG PO2 63.3 mmHg (75.0-100.0); AaDO2 61.2 mmHg; COHb 1.6 % (0.5-1.5); MetHb 0.8 % (0.0-1.5); O2Hb 87.5 % (94.0-97.0); SITE, ABG Right Brachial; VENT MODE, BG NASAL CANNULA
[2018-09-06] MEDS: FLUTICASONE/VILANTEROL 1 EACH BLST.W.DEV IH SCH (09:06)
[2018-09-06] MEDS: LINEZOLID RTU BAG 600 MG in PREMIX 1 EA IV SCH ×2 (09:41→21:03)
--- NOTE | 2018-09-06 10:00 | NUR ---
HARDWARE ENGINEER NOTES REPORTED PINK TINGED SPUTUM TO DR ARRIOLA. ORDERED SPUTUM CX.
[2018-09-06] MEDS: NYSTATIN/TRIAMCIN CREAM 15 GM TUBE TP SCH ×2 (10:19→17:00)
[2018-09-06] MEDS: SOD FERRIC GLUC 125 MG in IV NS 0.9% 100 ML IV SCH (16:32)
[2018-09-06] MEDS: MICAFUNGIN SODIUM 100 MG in IV NS 0.9% 100 ML IV SCH (18:12)
--- NOTE | 2018-09-06 19:55 | NUR ---
MS RN END OF SHIFT NOTES PT ENDORSED TO NOC NURSE FOR MICHELLE. PT IN BED, RESTING WITH AT BEDSIDE. PICC LINE REMOVED. IV IN LEFT HAND PATENT/FLUSHED. NO C/O OF PAIN. PT NOT IN DISTRESS. PER CM, BED AT [facility] AVAILABLE; [facility] FOR [facility]SP[facility]ATION. NOTIFIED OF POC. BED IN LOCKED/LOWEST POSITION. CALL LIGHT IN REACH. ALL NEEDS ATTENDED TO.
--- NOTE | 2018-09-06 20:00 | NUR ---
RN OPENING NOTES RECEIVED PT IN BED SEMI STANLEY'S POSITION, ASLEEP BUT EASILY AROUSAL. IS AT THE BEDSIDE. PATIENT IS A/OX3. ON NC 2L O2 WITH SPO2 OF 70'S, PATIENT WAS PLACED ON 6L MASK WITHSPO2 OF 93% .WHEEZING NOTED IN BILAT LOWER LUNGS. F/C IN PLACE DRAINING CLEAR YELLOW URINE. [address],RIGHT HAND G22 IV LINE IS PATIENT AND INTACT. EDEMA NOTED BILAT LOWER EXTREMITIES. CAP REFILL LESS THAN 3 SEC. ELEVATED LEGS ON PILLOWS. BED IN LOCKED/LOWEST POSITION. CALL LIGHT IN REACH. WILL CONT TO MONITOR.
[2018-09-06] MEDS: LEVALBUTEROL HCL NEB 1.25 MG/0.5 ML VIAL.NEB NEB PRN (20:15)
[2018-09-06] MEDS: IPRATROPIUM NEB FS 0.5 MG/2.5 ML AMPUL.NEB NEB PRN (20:15)
[2018-09-06] MEDS: ESCITALOPRAM OXALATE (10 MG) 10 MG TABLET PO SCH (21:42)
[2018-09-07] VITALS: BP 121/70
[2018-09-07 04:00] VITALS: BP 121/70
[2018-09-07] MEDS: MEROPENEM 1 G in IV NS 0.9% 100 ML IV SCH ×3 (05:38→21:00)
[2018-09-07 06:54] LABS: CALCIUM, SERUM 7.5 mg/dL (8.5-10.1); CARBON DIOXIDE 30 mmol/L (21-32); CHLORIDE 103 mmol/L (98-107); CREATININE 1.4 mg/dL (0.6-1.3); GLUCOSE 99 mg/dL (74-106); POTASSIUM 3.7 mmol/L (3.5-5.1); SODIUM SERUM 140 mmol/L (136-145); UREA NITROGEN, BLOOD 33 mg/dL (7-18)
--- NOTE | 2018-09-07 07:00 | NUR ---
WEAPONS ENGINEER OPENING NOTES RECEIVED PT IN BED, RESTING ON NC 3.5LPM. TOLERATING WELL. NO SOB NOTED. ON TELE ST 114. CONTACT ISOLATION PRECAUTIONS MAINTAINED. PT IS A/OX3. F/C DRAINING CLEAR YELLOW URINE. [address] OVER ABD. LH #[address]/PATENT[address] BED IN LOCKED/LOWEST POSITION. CALL LIGHT IN REACH. WILL CONT TO MONITOR.
[2018-09-07] MEDS: BLOOD SUGAR DIAGNOSTIC 1 EACH STRIP IN SCH ×3 (07:47→17:57)
[2018-09-07 08:00] VITALS: BP 118/58
[2018-09-07] MEDS: PANTOPRAZOLE 40 MG TABLET.DR PO SCH (08:13)
[2018-09-07] MEDS: FLUTICASONE/VILANTEROL 1 EACH BLST.W.DEV IH SCH (08:13)
[2018-09-07] MEDS: LINEZOLID RTU BAG 600 MG in PREMIX 1 EA IV SCH ×2 (08:13→21:00)
[2018-09-07] MEDS: DOCUSATE SODIUM 100 MG CAPSULE PO SCH ×2 (08:13→17:34)
[2018-09-07] MEDS: NYSTATIN/TRIAMCIN CREAM 15 GM TUBE TP SCH ×2 (08:20→17:59)
[2018-09-07 10:40] LABS: ABG BASE EXCESS 3.6 mmol/L; ABG OXYGEN SATURATION 88.5 % (92.0-98.5); ABG PH 7.334 (7.350-7.450); ABG PO2 62.3 mmHg (75.0-100.0); COHb 0.9 % (0.5-1.5); MetHb 0.5 % (0.0-1.5); O2Hb 87.3 % (94.0-97.0); SITE, ABG Left Radial; VENT MODE, BG Nasal Cannula
--- NOTE | 2018-09-07 12:22 | NUR ---
MS RN NOTES CAROLYN FREDERICK NP ROUNDING WITH PT.
[2018-09-07] MEDS ORDERED: Z GUARD REMEDY 2 OZ OINT TP PRN (13:00)
[2018-09-07] MEDS: ENSURE ENLIVE CHOC 237 ML CAN PO SCH ×2 (13:55→17:59)
[2018-09-07] MEDS: SOD FERRIC GLUC 125 MG in IV NS 0.9% 100 ML IV SCH (15:25)
[2018-09-07 16:00] VITALS: BP 124/62
[2018-09-07 16:48] LABS: MONOCYTES # (AUTO) 0.9 /CMM (0.1-1.30)
[2018-09-07] MEDS ORDERED: LEVA1.2524 NEB (16:54)
[2018-09-07] MEDS ORDERED: MICA100V IV (16:54)
[2018-09-07] MEDS ORDERED: IPRA0.2S9 NEB (16:54)
[2018-09-07] MEDS ORDERED: FLUT1BLS IH (16:54)
[2018-09-07 17:18] LABS: BASOPHILS # (AUTO) 0.2 /CMM (0.0-0.2); BASOPHILS % (AUTO) 1.2 % (0.0-2.0); EOSINOPHILS % (AUTO) 0.8 % (0.0-6.0); HEMATOCRIT 26 % (39-51); HEMOGLOBIN 7.7 g/dL (13.5-17.5); LYMPHOCYTES # (AUTO) 0.8 /CMM (0.8-4.8); LYMPHOCYTES % (AUTO) 5.3 % (20.0-44.0); MEAN CORPUSCULAR HGB CONC 29 g/dl (31.0-36.0); MEAN CORPUSCULAR VOLUME 75 fL (80-96); MONOCYTES % (AUTO) 5.8 % (2.0-12.0); NEUTROPHILS # (AUTO) 13.3 /CMM (1.8-8.9); NEUTROPHILS % (AUTO) 86.9 % (43.0-81.0); PLATELET COUNT (AUTO) 132 /CMM (150-450); WHITE BLOOD COUNT (AUTO) 15.3 K/uL (4.3-11.0)
[2018-09-07] MEDS: MICAFUNGIN SODIUM 100 MG in IV NS 0.9% 100 ML IV SCH (17:34)
--- NOTE | 2018-09-07 19:28 | NUR ---
MS RN END OF SHIFT NOTES REPORT GIVEN TO PM NURSE FOR MICHELLE. PT WILL BE TRANSFERRED TO [facility] [place] AT 8PM. NOC NURSE WILL GIVE REPORT TO [facility]. DISCHARGE PAPERWORK DONE. WOUND PICS TAKEN/IN CHART. ALL NEEDS ATTENDED. BED IN LOCKED/LOWEST POSITION .CALL LIGHT IN REACH.
--- NOTE | 2018-09-07 19:30 | NUR ---
MS RN NOTES REPORT GIVEN BEDSIDE. PRESENT. PATIENT A/O X3-4. PATIENT HAS RASMUSSEN IN PLACE DRAINING TO GRAVITY. URINE DARK YELLOW. PATIENT HAS LEFT SHERIDAN 22G SL NO S/S OF INFILTRATION/INFECTION. PATIENT HAS NO S/S OD ACUTE DISTRESS AT THIS TIME, NO C/O DISCOMFORT. PATIENT HAS WET COUGH NO PRODUCTION. PATIENT OXYGENATING WITHIN MD PRESCRIBED PARAMETERS. DISCHARGE TEACHING AND EDUCATED GIVEN TO AND PATIENT. SIGNED PT D/C PAPERS/ PATIENT WILL BE GOING TO [facility] FOR F/U WITH PRIMARY SURGEON. RN WILL CONTINUE TO MONITOR.
[2018-09-07 20:00] VITALS: BP 121/69
--- NOTE | 2018-09-07 20:27 | NUR ---
MS RN NOTE PATIENT C/O OF SOB, OZ 75% NO CYANOSIS OR PALOR NOTED. SKIN WARM AND DRY. PATIENT A/O X 3-4 RT NOTIFIED, PATIENT WILL BE GETTING PRN BREATHING TREATMENT
--- NOTE | 2018-09-07 20:35 | NUR ---
MS RN NOTE PATIENT GIVE TREATMENT, PLACED ON SIMPLE MASK D/T MOUTH BREATHING SATURATION 92%. PATIENT HAS NO S/S OF DISTRESS.
[2018-09-07] MEDS: IPRATROPIUM NEB FS 0.5 MG/2.5 ML AMPUL.NEB NEB PRN (20:50)
[2018-09-07] MEDS: LEVALBUTEROL HCL NEB 1.25 MG/0.5 ML VIAL.NEB NEB PRN (20:51)
--- NOTE | 2018-09-07 21:15 | NUR ---
MS STEPHENSON NOTE REPORT GIVEN TO ANGELIC MENDOZA RN AT [facility] PATIENT BEING TRANSFERRED TO ROOM 7724 AT [facility] [phone] . TRANSPORTATION ARRIVED AND PICKING UP PATIENT NOW. PATIENT STABLE NO S/S OF ACUTE DISTRESS AT BEDSIDE. Addendum: 09/07/18 at 2132 by VIBHA VASQUEZ RN DUE TO PATIENT D/C STATUS PATIENT NO LONGER IN UNIT TO GIVE 2100 MEDICATIONS, AWARE.
== END 2018-09-07 22:19 | disposition short-term general hospital (02) | DRG 871 ==
LOC: ER 21:36 → TELE1 23:36 → ICU 09-04 11:48 → MEDSG1 09-06 10:50 → TELE1 09-07 00:58 → MEDSG1 09-07 11:22
PROVIDERS: ADMIT Internal Medicine; ATTEND Hospitalist
PROC: 02HV33Z Insertion of Infusion Device into Superior Vena Cava, Percutaneous Approach (ICD-10-PCS; principal; 2018-09-03)
PROC: B548ZZA Ultrasonography of Superior Vena Cava, Guidance (ICD-10-PCS; 2018-09-03)
DX: B37.7 Candidal sepsis (principal); I21.A1 Myocardial infarction type 2; I50.33 Acute on chronic diastolic (congestive) heart failure; R65.21 Severe sepsis with septic shock; J96.22 Acute and chronic respiratory failure with hypercapnia; N17.0 Acute kidney failure with tubular necrosis; E44.0 Moderate protein-calorie malnutrition; E87.1 Hypo-osmolality and hyponatremia; K63.2 Fistula of intestine; J44.1 Chronic obstructive pulmonary disease with (acute) exacerbation; J98.11 Atelectasis; T81.30XA Disruption of wound, unspecified, initial encounter; Z87.891 Personal history of nicotine dependence; I11.0 Hypertensive heart disease with heart failure; Z99.81 Dependence on supplemental oxygen; Z87.01 Personal history of pneumonia (recurrent); Z86.718 Personal history of other venous thrombosis and embolism; Z86.711 Personal history of pulmonary embolism; Z79.4 Long term (current) use of insulin; Z79.51 Long term (current) use of inhaled steroids; Z86.19 Personal history of other infectious and parasitic diseases; Z88.8 Allergy status to other drugs, medicaments and biological substances; E11.9 Type 2 diabetes mellitus without complications; E87.6 Hypokalemia; I48.91 Unspecified atrial fibrillation; Z98.890 Other specified postprocedural states; D50.9 Iron deficiency anemia, unspecified; D63.8 Anemia in other chronic diseases classified elsewhere; L30.4 Erythema intertrigo; E86.1 Hypovolemia; B37.49 Other urogenital candidiasis; R74.0 Nonspecific elevation of levels of transaminase and lactic acid dehydrogenase [LDH]; Y83.9 Surgical procedure, unspecified as the cause of abnormal reaction of the patient, or of later complication, without mention of misadventure at the time of the procedure; Y92.129 Unspecified place in nursing home as the place of occurrence of the external cause; T50.2X5A Adverse effect of carbonic-anhydrase inhibitors, benzothiadiazides and other diuretics, initial encounter
CPT/HCPCS: 36415; 36600; 71045-TC; 80048-TC; 80053-TC; 80061-TC; 80076-TC; 80202-TC; 81000-TC; 82803-TC; 82962-TC; 83540-TC; 83605-TC; 83735-TC; 83880; 84100-TC; 84443-TC; 84484-TC; 85025-TC; 87040-TC; 87070-TC; 87081-TC; 87086-TC; 93307-TC; 93971-TC; A4216; A6253; A6402; A6403; G0378; J0692; J1450; J1650; J1815; J1940; J2020; J2185; J2248; J2270; J2543; J2916; J2930; J3370; J7030; J7040; J7042; J7050; J7060